=== PATIENT | female | born 1935 | race Caucasian/White ===

== ENCOUNTER → 2016-08-06 | Outpatient (CLI) | payer MEDICARE, BC ==
[~2016-08-06] MED LIST: LOSA50TA PO; MAXZ25 PO; METO25 PO; SIMV20 PO; SYNT112T PO
[2016-08-06 09:37] LABS: AUTOMATED NEUTROPHIL # 4.9 TH/MM3 (1.8-7.7); BASOPHIL # 0.1 TH/MM3 (0-0.2); BASOPHIL % 1.2 % (0.0-2.0); EOSINOPHIL # 0.1 TH/MM3 (0-0.4); EOSINOPHIL % 1.1 % (0.0-4.0); HEMATOCRIT 36.3 % (35.0-46.0); LYMPH % 21.2 % (9.0-44.0); LYMPHOCYTE # 2.1 TH/MM3 (1.0-4.8); MEAN CORPUSCULAR HGB CONC 33.7 % (32.0-36.0); MONO % 25.7 % (0.0-8.0); NEUT % 50.8 % (16.0-70.0); PLATELET COUNT 373 TH/MM3 (150-450); RED BLOOD COUNT 4.08 MIL/MM3 (4.00-5.30); RED CELL DISTRIBUTION WIDTH 15.6 % (11.6-17.2); WHITE BLOOD COUNT 9.7 TH/MM3 (4.0-11.0)
[2016-08-06 09:48] LABS: HEMO FLAGS AUTO DIFF
[2016-08-06 10:04] LABS: ALKALINE PHOSPHATASE 83 U/L (45-117); ALT (GPT) 15 U/L (10-53); ANION GAP 8 MEQ/L (5-15); AST (GOT) 15 U/L (15-37); BLOOD UREA NITROGEN 18 MG/DL (7-18); CHLORIDE 105 MEQ/L (98-107); GLOMERULAR FILTRATION RATE 60 ML/MIN (>89); GLUCOSE,FASTING 103 MG/DL (74-99); HDL CHOLESTEROL 49.6 MG/DL (40.0-60.0); LDL CHOLESTEROL 94 MG/DL (0-99); POTASSIUM 4.4 MEQ/L (3.5-5.1); SODIUM (NA) 142 MEQ/L (136-145); TOTAL BILIRUBIN ADULT 0.4 MG/DL (0.2-1.0)
[2016-08-06 10:36] LABS: SCAN/DIFF AUTO DIFF CONFIRMED
== END ==
LOC: PLAB 07:04
PROVIDERS: ATTEND Family Medicine
DX: R73.01 Impaired fasting glucose (principal); E03.8 Other specified hypothyroidism; E78.2 Mixed hyperlipidemia; I10 Essential (primary) hypertension
CPT/HCPCS: 36415; 80053; 80061; 84443; 85025

== ENCOUNTER → 2016-10-02 | Outpatient (CLI) | payer MEDICARE, BC | LOC: PLAB 10:11 | DX: D33.3 Benign neoplasm of cranial nerves (principal) | CPT/HCPCS: 36415; 82565; 84520 ==

== ENCOUNTER → 2017-01-05 | Outpatient (CLI) | payer MEDICARE, BC | LOC: PLAB 12:06 | PROVIDERS: ATTEND Psychiatry & Neurology Neurology | DX: M31.6 Other giant cell arteritis (principal) | CPT/HCPCS: 36415; 85652; 86140 ==

== ENCOUNTER → 2017-01-14 | Outpatient (CLI) | payer MEDICARE, BC ==
[2017-01-14 16:10] LABS: HEMATOCRIT 35.7 % (35.0-46.0); MEAN CORPUSCULAR HEMOGLOBIN 29.2 PG (27.0-34.0); MEAN CORPUSCULAR HGB CONC 32.9 % (32.0-36.0); PLATELET COUNT 401 TH/MM3 (150-450); RED BLOOD COUNT 4.01 MIL/MM3 (4.00-5.30); RED CELL DISTRIBUTION WIDTH 17.9 % (11.6-17.2); REVIEW FLAG FINAL; WHITE BLOOD COUNT 11.6 TH/MM3 (4.0-11.0)
[2017-01-14 16:11] LABS: BICARBONATE 28.7 MEQ/L (21.0-32.0); POTASSIUM 3.8 MEQ/L (3.5-5.1)
[2017-01-14 16:42] LABS: PROTHROMBIN TIME - PATIENT 10.5 SEC (9.8-11.6)
== END ==
LOC: PLAB 12:39
PROVIDERS: ATTEND Orthopaedic Surgery Sports Medicine
DX: Z01.812 Encounter for preprocedural laboratory examination (principal); Z79.01 Long term (current) use of anticoagulants
CPT/HCPCS: 36415; 80048; 85027; 85610

== ENCOUNTER → 2017-03-15 | Outpatient (CLI) | payer MEDICARE, BC ==
[2017-03-15 09:55] LABS: AUTOMATED NEUTROPHIL # 4.6 TH/MM3 (1.8-7.7); BASOPHIL # 0.1 TH/MM3 (0-0.2); BASOPHIL % 1.6 % (0.0-2.0); EOSINOPHIL # 0.1 TH/MM3 (0-0.4); EOSINOPHIL % 1.3 % (0.0-4.0); HEMATOCRIT 33.2 % (35.0-46.0); LYMPH % 24.3 % (9.0-44.0); LYMPHOCYTE # 2.1 TH/MM3 (1.0-4.8); MEAN CELL VOLUME 88.6 FL (80.0-100.0); MEAN CORPUSCULAR HEMOGLOBIN 30.8 PG (27.0-34.0); MEAN CORPUSCULAR HGB CONC 34.8 % (32.0-36.0); MONO % 19.4 % (0.0-8.0); NEUT % 53.4 % (16.0-70.0); PLATELET COUNT 348 TH/MM3 (150-450); RED BLOOD COUNT 3.74 MIL/MM3 (4.00-5.30); RED CELL DISTRIBUTION WIDTH 17.6 % (11.6-17.2); WHITE BLOOD COUNT 8.7 TH/MM3 (4.0-11.0)
[2017-03-15 09:56] LABS: HEMO FLAGS AUTO DIFF
[2017-03-15 10:00] LABS: ANION GAP 6 MEQ/L (5-15); AST (GOT) 18 U/L (15-37); BICARBONATE 30.5 MEQ/L (21.0-32.0); BLOOD UREA NITROGEN 19 MG/DL (7-18); CHLORIDE 104 MEQ/L (98-107); GLOMERULAR FILTRATION RATE 63 ML/MIN (>89); GLUCOSE,FASTING 106 MG/DL (74-99); POTASSIUM 4.3 MEQ/L (3.5-5.1); SODIUM (NA) 140 MEQ/L (136-145)
[2017-03-15 10:13] LABS: ALKALINE PHOSPHATASE 81 U/L (45-117); ALT (GPT) 17 U/L (10-53); HDL CHOLESTEROL 46.6 MG/DL (40.0-60.0); LDL CHOLESTEROL 99 MG/DL (0-99); TOTAL BILIRUBIN ADULT 0.3 MG/DL (0.2-1.0)
[2017-03-15 11:36] LABS: C. DIFF EPI 027 PRESUMPTIVE NEGATIVE (NEGATIVE)
[2017-03-15 11:44] LABS: OVALOCYTES 1+ (NORMAL)
[2017-03-15 11:45] LABS: SCAN/DIFF AUTO DIFF CONFIRMED
== END ==
LOC: PLAB 06:56
PROVIDERS: ATTEND Family Medicine
DX: E03.8 Other specified hypothyroidism (principal); I10 Essential (primary) hypertension; R73.01 Impaired fasting glucose; E78.2 Mixed hyperlipidemia; Z79.899 Other long term (current) drug therapy
CPT/HCPCS: 36415; 80053; 80061; 84443; 85025; 87493

== ENCOUNTER → 2017-03-17 | Outpatient (CLI) | payer MEDICARE, BC ==
[2017-03-17 16:27] LABS: RHEUMATOID FACTOR TRIGGER LESS THAN 10.0 IU/ML (0.0-14.9)
== END ==
LOC: PLAB 11:21
PROVIDERS: ATTEND Family Medicine
DX: R60.9 Edema, unspecified (principal); R79.82 Elevated C-reactive protein (CRP); R70.0 Elevated erythrocyte sedimentation rate
CPT/HCPCS: 36415; 86038; 86430

== ENCOUNTER 2017-04-22 06:58 | Day surgery (SDC) | payer MEDICARE, BC ==
[~2017-04-22] VITALS: Ht 162.6 cm; Wt 86.4 kg
[2017-04-22 07:27] VITALS: BP 209/86; PULSE 64; RESP 20; TEMP 97.8; O2SAT 99
[2017-04-22] MEDS ORDERED: LIDOCAINE HCL 1% 20 ML VIAL ONE (07:44)
[2017-04-22] MEDS ORDERED: SODIUM CHLOR 0.9% 1000 ML IV SCH (08:00)
[2017-04-22 08:04] LABS: AUTOMATED NEUTROPHIL # 4.1 TH/MM3 (1.8-7.7); BASOPHIL # 0.1 TH/MM3 (0-0.2); BASOPHIL % 1.6 % (0.0-2.0); EOSINOPHIL # 0.1 TH/MM3 (0-0.4); EOSINOPHIL % 0.7 % (0.0-4.0); HEMATOCRIT 36.2 % (35.0-46.0); LYMPH % 23.4 % (9.0-44.0); LYMPHOCYTE # 1.8 TH/MM3 (1.0-4.8); MEAN CELL VOLUME 89.1 FL (80.0-100.0); MEAN CORPUSCULAR HEMOGLOBIN 29.5 PG (27.0-34.0); MEAN CORPUSCULAR HGB CONC 33.1 % (32.0-36.0); MEAN PLATELET VOLUME 10.1 FL (7.0-11.0); MONO % 22.2 % (0.0-8.0); MONOCYTE # 1.7 TH/MM3 (0-0.9); NEUT % 52.1 % (16.0-70.0); PLATELET COUNT 313 TH/MM3 (150-450); RED BLOOD COUNT 4.06 MIL/MM3 (4.00-5.30); RED CELL DISTRIBUTION WIDTH 17.7 % (11.6-17.2); WHITE BLOOD COUNT 7.8 TH/MM3 (4.0-11.0)
[2017-04-22] MEDS ORDERED: MIDAZOLAM HCL 2 MG/2 ML VIAL ONE (08:13)
[2017-04-22 09:01] LABS: BANDS 2 % (0-6); BASOPHILS 3 % (0-2); LYMPHOCYTES 28 % (9-44); MONOCYTES 27 % (0-8); MYELOCYTES 1 % (0-0); NEUTROPHIL # MANUAL DIFF 3.2 TH/MM3 (1.8-7.7); OVALOCYTES 1+ (NORMAL); POLYS (SEG NEUTROPHILS) 38 % (16-70)
[2017-04-22 09:30] VITALS: BP 159/68; PULSE 55; RESP 16; TEMP 98.2; O2SAT 96
[2017-04-22 09:45] VITALS: BP 157/68; PULSE 59; RESP 16; O2SAT 93
[2017-04-22 10:00] VITALS: BP 157/66; PULSE 57; RESP 18; O2SAT 94
[2017-04-22 10:30] VITALS: BP 171/85; PULSE 65; RESP 20; O2SAT 96
[2017-04-22 11:00] VITALS: BP 153/85; PULSE 63; RESP 20; O2SAT 97
--- NOTE | 2017-04-22 11:33 | RADRPT ---
EXAM DATE/TIME: 04/22/2017 08:41 [place] COMPARISON: No previous studies available for comparison. INDICATIONS : Anemia and monocytosis. SEDATION TIME: 15 minutes BIOPSY SITE: Right ilium MEDICATION(S): 1.) 3 mg midazolam (Versed) IV 2.) 150 mcg fentanyl (Sublimaze) IV DEVICE(S): 1.) 11 gauge Bone marrow biopsy needle MEDICAL HISTORY : Gastroesophageal reflux disease. Diverticulosis. Hypertension. Hypothyroidism, acoustic neuroma, uter ine fibroids. SURGICAL HISTORY : Appendectomy. Hysterectomy. Resection of acoustic neuroma. ENCOUNTER: Initial ACUITY: 1 day PAIN SCORE: 0/10 LOCATION: Right pelvis A total of one core specimen(s) were obtained and sent to the laboratory for pathologic evaluation. PROCEDURE: 1. CT guided bone marrow biopsy. Prior to the procedure informed consent was obtained. Any appropriate prior imaging studies were rev iewed. Using automated exposure control and adjustment of the mA and/or kV according to patient size , radiation dose was kept as low as reasonably achievable to obtain optimal diagnostic quality images . DICOM format image data is available electronically for review and comparison. The site was prepped in a sterile fashion. Full sterile technique was used, including cap, mask, sofya rile gloves and gown and a large sterile sheet. Hand hygiene and 2% chlorhexidine and/or betadine/al cohol prep was utilized per protocol for cutaneous antisepsis. The skin and subcutaneous tissues wer e infiltrated with local anesthetic solution. With CT guidance the previously identified target was localized. Biopsy was performed using the presc ribed needle as above. Following biopsy marrow aspiration was performed with repeat puncture. Adequa te hemostasis was obtained with compression at the puncture site. Follow-up CT scan reveals no hemorrhage. Conscious sedation was performed with the prescribed dosages and duration as above in the presence of an independent trained radiology nurse to assist in the monitoring of the patient. EKG and oximetry remained stable throughout the procedure. The patient tolerated the procedure well and there were no complications. The patient was sent to Radiology Outpatient Unit in stable condition. CONCLUSION: 1. Uncomplicated CT guided bone marrow aspirate. 2. Uncomplicated CT guided bone marrow biopsy. Librado Haynes MD on April 22, 2017 at 11:30 Board Certified Radiologist. This report was verified electronically.
== END 2017-04-22 11:30 | disposition home or self-care (01) ==
LOC: HRAD 06:58 → HRIP 07:03 → HRAD 11:30
PROVIDERS: ATTEND Internal Medicine
DX: D64.9 Anemia, unspecified (principal); D72.821 Monocytosis (symptomatic); E03.9 Hypothyroidism, unspecified; I10 Essential (primary) hypertension; K21.9 Gastro-esophageal reflux disease without esophagitis
CPT/HCPCS: 38222; 77012; 85007; 85027; 85097; 88184; 88185; 88237; 88264; 88305; 88311; 88313; 99152; C1830; J2250; J3010; J7030; 38221

== ENCOUNTER → 2017-05-19 | Outpatient (CLI) | payer MEDICARE, BC | LOC: PLAB 13:50 | PROVIDERS: ATTEND Internal Medicine Interventional Cardiology | DX: I25.118 Atherosclerotic heart disease of native coronary artery with other forms of angina pectoris (principal); E78.2 Mixed hyperlipidemia; R06.02 Shortness of breath; I50.9 Heart failure, unspecified | CPT/HCPCS: 36415; 83880 ==

== ENCOUNTER → 2017-05-26 | Outpatient (CLI) | payer MEDICARE, BC ==
--- NOTE | 2017-05-27 09:56 | RSPPFT ---
DATE OF PROCEDURE: 05/26/17 COMMENTS: The forced vital capacity, FEV1, FEV1/FVC ratio and FEF 25-75 are all normal. The total lung capacity and residual volume are normal with a normal RV/TLC. IMPRESSION: This is a normal pulmonary function study. The diffusion capacity, when corrected for volume, is normal.
== END ==
LOC: PHRSP 09:23
PROVIDERS: ATTEND Internal Medicine Interventional Cardiology
DX: R06.02 Shortness of breath (principal)
CPT/HCPCS: 94060; 94726; 94729

== ENCOUNTER → 2017-07-12 | Outpatient (CLI) | payer MEDICARE, BC ==
[2017-07-12 18:46] LABS: AUTOMATED NEUTROPHIL # 4.2 TH/MM3 (1.8-7.7); BASOPHIL # 0.1 TH/MM3 (0-0.2); BASOPHIL % 0.6 % (0.0-2.0); EOSINOPHIL % 0.3 % (0.0-4.0); HEMATOCRIT 30.8 % (35.0-46.0); HEMOGLOBIN 10.8 GM/DL (11.6-15.3); LYMPH % 35.2 % (9.0-44.0); LYMPHOCYTE # 3.4 TH/MM3 (1.0-4.8); MEAN CELL VOLUME 86.1 FL (80.0-100.0); MEAN CORPUSCULAR HEMOGLOBIN 30.1 PG (27.0-34.0); MEAN PLATELET VOLUME 10.6 FL (7.0-11.0); MONO % 20.4 % (0.0-8.0); NEUT % 43.5 % (16.0-70.0); PLATELET COUNT 150 TH/MM3 (150-450); RED BLOOD COUNT 3.58 MIL/MM3 (4.00-5.30); RED CELL DISTRIBUTION WIDTH 17.7 % (11.6-17.2); WHITE BLOOD COUNT 9.7 TH/MM3 (4.0-11.0)
[2017-07-12 19:53] LABS: BANDS 5 % (0-6); BASOPHILS 1 % (0-2); LYMPHOCYTES 37 % (9-44); MONOCYTES 20 % (0-8); NEUTROPHIL # MANUAL DIFF 4.1 TH/MM3 (1.8-7.7); POLYS (SEG NEUTROPHILS) 37 % (16-70)
[2017-07-12 19:54] LABS: OVALOCYTES 1+ (NORMAL)
== END ==
LOC: PLAB 15:53
DX: D47.1 Chronic myeloproliferative disease (principal)
CPT/HCPCS: 36415; 85007; 85027

== ENCOUNTER → 2017-07-22 | Outpatient (CLI) | payer MEDICARE, BC ==
[2017-07-22 10:57] LABS: HEMOGLOBIN 10.2 GM/DL (11.6-15.3); MEAN CELL VOLUME 87.4 FL (80.0-100.0); MEAN CORPUSCULAR HEMOGLOBIN 29.7 PG (27.0-34.0); MEAN PLATELET VOLUME 10.6 FL (7.0-11.0); PLATELET COUNT 81 TH/MM3 (150-450); RED BLOOD COUNT 3.43 MIL/MM3 (4.00-5.30); RED CELL DISTRIBUTION WIDTH 17.8 % (11.6-17.2); RETIC # 73.8 MIL/L (20.0-150.0); RETIC % 2.2 % (0.4-3.0); WHITE BLOOD COUNT 7.7 TH/MM3 (4.0-11.0)
[2017-07-22 11:03] LABS: BICARBONATE 28.3 MEQ/L (21.0-32.0); BLOOD UREA NITROGEN 20 MG/DL (7-18); CALCIUM 8.8 MG/DL (8.5-10.1); CHLORIDE 108 MEQ/L (98-107); GLOMERULAR FILTRATION RATE 81 ML/MIN (>89); GLUCOSE,RANDOM 101 MG/DL (74-106); MAGNESIUM 2.3 MG/DL (1.5-2.5); SODIUM (NA) 143 MEQ/L (136-145)
[2017-07-22 11:08] LABS: ALKALINE PHOSPHATASE 100 U/L (45-117); ALT (GPT) 15 U/L (10-53); AST (GOT) 16 U/L (15-37); DIRECT BILIRUBIN ADULT 0.1 MG/DL (0.0-0.2); PHOSPHORUS 3.5 MG/DL (2.5-4.9); TOTAL BILIRUBIN ADULT 0.4 MG/DL (0.2-1.0); TOTAL PROTEIN 7.9 GM/DL (6.4-8.2)
[2017-07-22 12:08] LABS: BANDS 2 % (0-6); BASOPHILS 2 % (0-2); BLASTS 2 % (0-0); CORRECTED NUCLEATED RBC 2 /100 WBC (0-0); LYMPHOCYTES 24 % (9-44); METAMYELOCYTES 4 % (0-1); MONOCYTES 21 % (0-8); MYELOCYTES 5 % (0-0); NEUTROPHIL # MANUAL DIFF 3.9 TH/MM3 (1.8-7.7); NUCLEATED RED BLOOD CELL 2 (0-0); POLYS (SEG NEUTROPHILS) 40 % (16-70)
[2017-07-22 12:09] LABS: OVALOCYTES 1+ (NORMAL)
[2017-07-22 12:10] LABS: KERATOCYTES OCC (NORMAL); TEARDROP RBCS 1+ (NORMAL)
== END ==
LOC: PLAB 07:49
DX: D47.1 Chronic myeloproliferative disease (principal)
CPT/HCPCS: 36415; 80053; 82248; 83615; 83735; 84100; 84550; 85007; 85027; 85044

== ENCOUNTER → 2017-08-18 | Outpatient (CLI) | payer MEDICARE, BC ==
[2017-08-18 11:17] LABS: HEMATOCRIT 29.8 % (35.0-46.0); MEAN CELL VOLUME 88.3 FL (80.0-100.0); MEAN CORPUSCULAR HEMOGLOBIN 29.7 PG (27.0-34.0); MEAN CORPUSCULAR HGB CONC 33.7 % (32.0-36.0); PLATELET COUNT 160 TH/MM3 (150-450); RED BLOOD COUNT 3.38 MIL/MM3 (4.00-5.30); RED CELL DISTRIBUTION WIDTH 19.4 % (11.6-17.2); WHITE BLOOD COUNT 11.6 TH/MM3 (4.0-11.0)
[2017-08-18 11:29] LABS: % SATURATION IRON PROFILE 21.1 % (20-50); FERRITIN 150 NG/ML (8-252); IRON (FE) 69 MCG/DL (50-170); TOTAL IRON BINDING CAPACITY 328 MCG/DL (250-450)
[2017-08-18 12:46] LABS: BANDS 19 % (0-6); BASOPHILS 1 % (0-2); CORRECTED NUCLEATED RBC 4 /100 WBC (0-0); LYMPHOCYTES 14 % (9-44); METAMYELOCYTES 2 % (0-1); MONOCYTES 26 % (0-8); MYELOCYTES 1 % (0-0); NEUTROPHIL # MANUAL DIFF 6.8 TH/MM3 (1.8-7.7); NUCLEATED RED BLOOD CELL 4 (0-0); POLYS (SEG NEUTROPHILS) 37 % (16-70)
[2017-08-18 12:47] LABS: OVALOCYTES 1+ (NORMAL)
== END ==
LOC: PLAB 06:45
PROVIDERS: ATTEND Internal Medicine Gastroenterology
DX: D50.9 Iron deficiency anemia, unspecified (principal)
CPT/HCPCS: 36415; 82728; 83540; 83550; 85007; 85027

== ENCOUNTER → 2017-08-19 | Outpatient (CLI) | payer MEDICARE, BC ==
[2017-08-19 18:29] LABS: AUTOMATED NEUTROPHIL # 5.7 TH/MM3 (1.8-7.7); BASOPHIL # 0.1 TH/MM3 (0-0.2); BASOPHIL % 1.3 % (0.0-2.0); EOSINOPHIL % 0.3 % (0.0-4.0); HEMATOCRIT 30.2 % (35.0-46.0); HEMOGLOBIN 9.9 GM/DL (11.6-15.3); LYMPH % 20.6 % (9.0-44.0); LYMPHOCYTE # 2.2 TH/MM3 (1.0-4.8); MEAN CELL VOLUME 90.3 FL (80.0-100.0); MEAN CORPUSCULAR HEMOGLOBIN 29.6 PG (27.0-34.0); MEAN CORPUSCULAR HGB CONC 32.8 % (32.0-36.0); MEAN PLATELET VOLUME 10.7 FL (7.0-11.0); MONO % 24.5 % (0.0-8.0); MONOCYTE # 2.6 TH/MM3 (0-0.9); NEUT % 53.3 % (16.0-70.0); PLATELET COUNT 172 TH/MM3 (150-450); RED BLOOD COUNT 3.35 MIL/MM3 (4.00-5.30); RED CELL DISTRIBUTION WIDTH 19.6 % (11.6-17.2); RETIC # 223.2 MIL/L (20.0-150.0); RETIC % 6.7 % (0.4-3.0); WHITE BLOOD COUNT 10.8 TH/MM3 (4.0-11.0)
[2017-08-19 18:49] LABS: AST (GOT) 21 U/L (15-37); BICARBONATE 28.8 MEQ/L (21.0-32.0); BLOOD UREA NITROGEN 16 MG/DL (7-18); CALCIUM 9.2 MG/DL (8.5-10.1); CHLORIDE 103 MEQ/L (98-107); CREATININE 0.81 MG/DL (0.50-1.00); GLOMERULAR FILTRATION RATE 68 ML/MIN (>89); GLUCOSE,FASTING 108 MG/DL (74-99); SODIUM (NA) 140 MEQ/L (136-145)
[2017-08-19 18:50] LABS: ALT (GPT) 18 U/L (10-53)
[2017-08-19 18:52] LABS: ALKALINE PHOSPHATASE 101 U/L (45-117); TOTAL BILIRUBIN ADULT 0.5 MG/DL (0.2-1.0); TOTAL PROTEIN 7.6 GM/DL (6.4-8.2)
[2017-08-19 19:34] LABS: BANDS 5 % (0-6); CORRECTED NUCLEATED RBC 5 /100 WBC (0-0); LYMPHOCYTES 17 % (9-44); MONOCYTES 20 % (0-8); NEUTROPHIL # MANUAL DIFF 6.8 TH/MM3 (1.8-7.7); NUCLEATED RED BLOOD CELL 5 (0-0); OVALOCYTES 1+ (NORMAL); POLYS (SEG NEUTROPHILS) 58 % (16-70); STOMATOCYTES 1+ (NORMAL)
== END ==
LOC: PLAB 14:56
DX: D47.1 Chronic myeloproliferative disease (principal)
CPT/HCPCS: 36415; 80053; 83615; 84550; 85007; 85027; 85044

== ENCOUNTER 2018-02-26 06:58 | Inpatient (IN) ==
--- NOTE | 2018-02-26 07:24 | ED ---
HPI General Chief complaint: Syncope Stated complaint: poss syncope/evac Time Seen by Provider: 02/26/18 07:10 Source: patient Mode of arrival: ambulatory Limitations: no limitations History of Present Illness HPI narrative: 82yo F with PMH of myelofibrosis, hypothyroid, acoustic neuroma s /p resection 2007 (neurosurgeon in [place], now follows with Dr. San ) was brought in by [facility] for evaluation of syncope and fall. Pt was walking at home does not remember what happened and woke up on the floor. Pt complains of pain in her posterior head and sacrum. Also with nausea and vomiting. There is some discomfort on abdominal exam as well. Denies any fever, chest pain, sob , neck pain, focal weakness or numbness. Related Data Home Medications Medication Instructions Recorded Confirmed divalproex 250 mg PO DAILY 10/28/17 02/26/18 isosorbide mononitrate 30 mg PO DAILY 10/28/17 02/26/18 levothyroxine 137 mcg PO DAILY 10/28/17 02/26/18 losartan 50 mg PO DAILY 10/28/17 02/26/18 metoprolol succinate 50 mg PO DAILY 10/28/17 02/26/18 simvastatin 20 mg PO QPM 10/28/17 02/26/18 triamterene-hydrochlorothiazid 1 cap PO DAILY 10/28/17 02/26/18 allopurinol 100 mg PO DAILY 02/26/18 02/26/18 ruxolitinib [Jakafi] 15 mg PO BID 02/26/18 02/26/18 Allergies Allergy/AdvReac Type Severity Reaction Status Date / Time Penicillins Allergy Anaphylaxis Verified 02/26/18 07:36 Sulfa (Sulfonamide AdvReac Nausea Verified 02/26/18 07:36 Antibiotics) Review of Systems ROS: all other systems reviewed are negative [facility] Medical History Medical History Acoustic neuroma (Acute) Myelofibrosis (Acute) Acute torn meniscus of knee (Acute) Carpal tunnel syndrome (Acute) HTN (hypertension) (Acute) High cholesterol (Acute) History of hysterectomy (Acute) Hypothyroid (Acute) Trigger finger (Acute) Surgical History Surgical History History of neck surgery (Acute) Hx of appendectomy (Acute) Social History Social History Substance History: No History of Abuse Second Hand Smoke Exposure: No Smoking Status: Former smoker Tobacco Type: Cigarettes How Often Do You Have a Drink Containing Alcohol: 2 to 3 times a week Recent Travel in [facility] within the Last 8 Weeks: No Exam Narrative Exam Narrative: GENERAL: 82yo F in mild distress. SKIN: Focused skin assessment warm/dry. HEAD: Left temporal deformity from previous surgery. Tender to palpation posterior scalp. No laceration. EYES: Pupils equal and round. No scleral icterus. No injection or drainage. ENT: No nasal bleeding or discharge. Mucous membranes pink and moist. NECK: Trachea midline. No JVD. CARDIOVASCULAR: Regular rate and rhythm. No murmur appreciated. RESPIRATORY: No accessory muscle use. Clear to auscultation. Breath sounds equal bilaterally. GASTROINTESTINAL: Abdomen soft, mild ttp diffusely. Said it hurt when I press but not when I dont. MUSCULOSKELETAL: +TTP sacrum. No obvious deformities. No clubbing. No cyanosis. No edema. NEUROLOGICAL: Awake and alert. No obvious cranial nerve deficits. Motor grossly within normal limits in all extremities. Sensation equal bilaterally. Normal speech. PSYCHIATRIC: Appropriate mood and affect; insight and judgment normal. Course Initial Documented Vital Signs Temperature 97.5 F L 02/26/18 07:32 Pulse Rate 68 02/26/18 07:32 Respiratory Rate 18 02/26/18 07:32 Blood Pressure 186/82 H 02/26/18 07:32 Pulse Oximetry 98 02/26/18 07:32 Last Documented Vital Signs Temperature 97.5 F L 02/26/18 07:32 Pulse Rate 78 02/26/18 12:00 Respiratory Rate 16 02/26/18 12:00 Blood Pressure 155/59 H 02/26/18 11:45 Pulse Oximetry 99 02/26/18 10:15 Critical Care Time Critical Care Time: Yes Total Critical Care Time: 50 Attestation: Aggregate critical care time was 50 minutes. Time to perform other separately billable procedures was not included in the critical care time. My time did not include minutes spent treating any other patients simultaneously or on activities that did not directly contribute to the patient's treatment. The services I provided to this patient were to treat and/or prevent clinically significant deterioration that could result in: cardiovascular collapse or . I provided critical care services requiring my management, as noted below: Chart data review, documentation time, medication orders and management, vital sign assessments/reviewing monitor data, ordering and reviewing lab tests, ordering and interpreting/reviewing x-rays and diagnostic studies, care of the patient and discussion of the patient with the admitting physicians. Medical Decision Making MDM Narrative Medical decision making narrative: 82yo F was brought in by [facility] after episode of syncope and falling onto the floor. Denies any anticoagulation. Pt is vomiting in the ED and given zofran. Labs reviewed, mild leukocytosis at 13, 000. H/H low at 10.9/33.0 but this is her baseline. Troponin negative. BUN mildly elevated at 21. Xray scarum coccyx negative. CT a/p showed no inflammatory changes. CT brain showed left sided subdural hemorrhage. BP is elevated and since pt has ICH, will start on nicardipine drip and give keppra for seizure prophylaxis. Discussed with Dr. Faith from neurosurgery and he recommends admission to [facility], repeat CT scan tomorrow and neurochecks Q2 hr. Discussed with Dr. Rogers and accepted to trauma service. Medical Screen Exam Complete: Yes Emergency Medical Condition: Yes Differential Diagnosis Differential Diagnosis: ICH vs. arrhthymia vs. electrolyte abnormality Lab Data Result diagrams: 02/26/18 07:25 02/26/18 07:25 Lab Results 02/26/18 02/26/18 02/26/18 Range/Units 07:25 07:25 10:45 CBC w Diff Slide review pending WBC 13.0 H (4.0-11.0) th/mm3 RBC 3.49 L (4.00-5.30) mil/mm3 Hgb 10.9 L (11.6-15.3) gm/dL Hct 33.0 L (35.0-46.0) % MCV 94.3 (80.0-100.0) fL MCH 31.1 (27.0-34.0) pg MCHC 32.9 (32.0-36.0) % RDW 16.6 (11.6-17.2) % Plt Count 182 (150-450) th/mm3 MPV 9.3 (7.0-11.0) fL Neut % (Auto) 59.8 (16.0-70.0) % Lymph % (Auto) 21.7 (9.0-44.0) % [place] % (Auto) 15.3 H (0.0-8.0) % Eos % (Auto) 0.3 (0.0-4.0) % Baso % (Auto) 2.9 H (0.0-2.0) % Neut # (Auto) 7.8 H (1.8-7.7) th/mm3 Lymph # (Auto) 2.8 (1.0-4.8) th/mm3 [place] # (Auto) 2.0 H (0.0-0.9) th/mm3 Eos # (Auto) 0.0 (0.0-0.4) th/mm3 Baso # (Auto) 0.4 H (0.0-0.2) th/mm3 WBC Differential . Diff Scan Auto diff confirmed Differential Comment . Platelet Estimate Normal (Normal) Platelet Morphology Normal (Normal) RBC Morphology Normal (Normal) PT (9.8-11.6) sec INR Ratio APTT (23.4-31.7) sec Sodium 140 (136-145) meq/L Potassium 3.7 (3.5-5.1) meq/L Chloride 106 (98-107) meq/L Carbon Dioxide 25.1 (21.0-32.0) meq/L Anion Gap 9 (5-15) meq/L BUN 21 H (7-18) mg/dL Creatinine 0.91 (0.50-1.00) mg/dL Estimated GFR 59 L (>89) mL/min Random Glucose 131 H (74-106) mg/dL Calcium 8.4 L (8.5-10.1) mg/dL Magnesium 2.1 (1.5-2.5) mg/dL Troponin I Less than 0.02 L (0.02-0.05) ng/mL Blood Type O Positive Antibody Screen Negative 02/26/18 Range/Units 10:50 CBC w Diff WBC (4.0-11.0) th/mm3 RBC (4.00-5.30) mil/mm3 Hgb (11.6-15.3) gm/dL Hct (35.0-46.0) % MCV (80.0-100.0) fL MCH (27.0-34.0) pg MCHC (32.0-36.0) % RDW (11.6-17.2) % Plt Count (150-450) th/mm3 MPV (7.0-11.0) fL Neut % (Auto) (16.0-70.0) % Lymph % (Auto) (9.0-44.0) % [place] % (Auto) (0.0-8.0) % Eos % (Auto) (0.0-4.0) % Baso % (Auto) (0.0-2.0) % Neut # (Auto) (1.8-7.7) th/mm3 Lymph # (Auto) (1.0-4.8) th/mm3 [place] # (Auto) (0.0-0.9) th/mm3 Eos # (Auto) (0.0-0.4) th/mm3 Baso # (Auto) (0.0-0.2) th/mm3 WBC Differential Diff Scan Differential Comment Platelet Estimate (Normal) Platelet Morphology (Normal) RBC Morphology (Normal) PT 10.5 (9.8-11.6) sec INR 1.0 Ratio APTT 27.0 (23.4-31.7) sec Sodium (136-145) meq/L Potassium (3.5-5.1) meq/L Chloride (98-107) meq/L Carbon Dioxide (21.0-32.0) meq/L Anion Gap (5-15) meq/L BUN (7-18) mg/dL Creatinine (0.50-1.00) mg/dL Estimated GFR (>89) mL/min Random Glucose (74-106) mg/dL Calcium (8.5-10.1) mg/dL Magnesium (1.5-2.5) mg/dL Troponin I (0.02-0.05) ng/mL Blood Type Antibody Screen Imaging Data Radiologist's impression: Head CT 02/26/18 07:13 CONCLUSION: 1. Left-sided subdural hemorrhage is seen. . Abdomen/Pelvis CT 02/26/18 07:19 CONCLUSION: 1. Atherosclerosis. 2. Hepatic cyst. 3. Diverticulosis. 4. No inflammatory changes are seen. Sacrum and Coccyx X-Ray 02/26/18 07:19 CONCLUSION: No acute findings. ECG Data EKG Prior to Arrival: No Attestation: I personally reviewed and interpreted this ECG as follows: Interpretation: NSR 80bpm. Normal axis. GA interval 144ms. No significant ST elevation or depression. Discharge Plan Discharge Disposition Patient Disposition: 30 Still Patient Discharge Details Diagnosis: Acute subdural hematoma, Syncope Physicians Team ED Provider: Sloane Petersen Primary Care Provider: Dari Herring Attending Provider: Barbara Duque Other Providers: Quang Villagran ; Ethan Henderson ; [employer] ; Jose Kemp ; Cori Ortega ; Kunal Gong ; Janessa Sutton ; Merle Monroy ; Barbara Duque ; Vj Saldana ; Jamel Faith Status ED Status: Left Department Discharge Information Discharge Date/Time: 02/26/18 13:44
[2018-02-26 07:44] LABS: Baso # (Auto) 0.4 th/mm3 (0.0-0.2); Baso % (Auto) 2.9 % (0.0-2.0); Chloride 106 meq/L (98-107); Eos % (Auto) 0.3 % (0.0-4.0); Hemoglobin 10.9 gm/dL (11.6-15.3); Lymph # (Auto) 2.8 th/mm3 (1.0-4.8); Lymph % (Auto) 21.7 % (9.0-44.0); Mean Corpuscular HGB Conc 32.9 % (32.0-36.0); Mean Corpuscular Hemoglobin 31.1 pg (27.0-34.0); Mean Corpuscular Volume 94.3 fL (80.0-100.0); Mean Platelet Volume 9.3 fL (7.0-11.0); Mono % (Auto) 15.3 % (0.0-8.0); Neut # (Auto) 7.8 th/mm3 (1.8-7.7); Neut % (Auto) 59.8 % (16.0-70.0); Platelet Count 182 th/mm3 (150-450); Potassium 3.7 meq/L (3.5-5.1); Red Blood Count 3.49 mil/mm3 (4.00-5.30); Red Cell Distribution Width 16.6 % (11.6-17.2); Sodium 140 meq/L (136-145)
[2018-02-26 07:48] LABS: Calcium 8.4 mg/dL (8.5-10.1)
[2018-02-26 07:49] LABS: Anion Gap 9 meq/L (5-15); Blood Urea Nitrogen 21 mg/dL (7-18); Carbon Dioxide 25.1 meq/L (21.0-32.0); Glucose,Random 131 mg/dL (74-106); Magnesium 2.1 mg/dL (1.5-2.5)
[2018-02-26 07:52] LABS: Glomerular Filtration Rate 59 mL/min (>89)
--- NOTE | 2018-02-26 08:01 | XR ---
EXAM DATE: 02/26/2018 7:52 AM EST AGE/SEX: 82 years / Female INDICATIONS: Fell today, pain coccyx area CLINICAL DATA: This is the patient's initial encounter. Patient reports that signs and symptoms have been present for 1 day and indicates a pain score of 8/10. MEDICAL/SURGICAL HISTORY: . Hypercholesterolemia. Hypertension. Hypothyroidism. . Carpal trisha rufina. Splenomegaly Appendectomy. COMPARISON: No prior exams available for comparison. FINDINGS: Two-view examination of the sacrum and coccyx demonstrates no evidence of fracture or malalignment. The sacral ala and foramina appear symmetric and intact. The coccyx appears unremarkable. The preve rtebral soft tissues are within normal limits. Bone density is diminished. Atherosclerotic calcificat ion of the aorta and iliac vessels. Moderate facet hypertrophic changes of the lower lumbar spine. CONCLUSION: No acute findings. Electronically signed by: Jamel Swenson MD 02/26/2018 7:59 AM EST
[2018-02-26 08:25] LABS: Platelet Estimate Normal (Normal); RBC Morphology Normal (Normal)
[2018-02-26 08:26] LABS: Platelet Morphology Normal (Normal)
--- NOTE | 2018-02-26 08:41 | CT ---
EXAM DATE: 02/26/2018 8:33 AM EST AGE/SEX: 82 years / Female INDICATIONS: Syncope CLINICAL DATA: This is the patient's initial encounter. Patient reports that signs and symptoms have been present for 1 day and indicates a pain score of 7/10. MEDICAL/SURGICAL HISTORY: Hypertension. Hypothyroidism. Appendectomy. Hysterectomy. Acoustic Neur cheryl Left Ear removed, Neck Surgery RADIATION DOSE: 62.94 CTDI (mGy) COMPARISON: POI, MR BRAIN W AND W/O CONTRAST, 10/12/2016. . TECHNIQUE: CT of the head without contrast. Using automated exposure control and adjustment of the mA and/or kV according to patient size, radiation dose was kept as low as reasonably achievable to ob tain optimal diagnostic quality images. DICOM format image data is available electronically for revi ew and comparison. FINDINGS: Examination demonstrates a left frontal subdural hematoma, as well as interhemispheric subdural hemor rhage encounter 1.4 cm in width on axial image 23. There is a small amount of extra-axial hemorrhage also seen along the left temporal region on axial image 14. There is no midline shift. The patient allen s had previous left occipital craniotomy. No fractures are seen. No signs of acute infarction or mass . CONCLUSION: 1. Left-sided subdural hemorrhage is seen. . Electronically signed by: Jamel Swenson MD 02/26/2018 8:39 AM EST
--- NOTE | 2018-02-26 08:43 | CT ---
EXAM DATE: 02/26/2018 8:37 AM EST AGE/SEX: 82 years / Female INDICATIONS: Abdomen pain, Nausea, Vomiting CLINICAL DATA: This is the patient's initial encounter. Patient reports that signs and symptoms have been present for 1 day and indicates a pain score of 7/10. MEDICAL/SURGICAL HISTORY: Hypertension. Hypothyroidism. Appendectomy. Hysterectomy. Acoustic Neuroma Left Ear removed, Neck Surgery ORAL CONTRAST: No oral contrast ingested. RADIATION DOSE: 17.96 CTDI (mGy) COMPARISON: HPO, SACRUM COCCYX MIN 2V, 02/26/2018. . TECHNIQUE: Multiple contiguous axial images were obtained through the abdomen and pelvis following b olus infusion of 93ML ml Omnipaque 350 (iohexol) nonionic water-soluble contrast as a single exam d ose. No oral contrast ingested. Using automated exposure control and adjustment of the mA and/or kV according to patient size, radiation dose was kept as low as reasonably achievable to obtain optimal diagnostic quality images. DICOM format image data is available electronically for review and compar cary. FINDINGS: Coronary artery calcification. No pleural or pericardial effusions. There is a cyst present in the ri ght lobe of the liver measuring 3.4 cm. Gallbladder, kidneys, adrenals, spleen, pancreas unremarkable . No evidence of bowel obstruction. Urinary bladder is unremarkable. The patient is status post hyste rectomy. There is diverticulosis of the sigmoid colon, without evidence of diverticulitis. No adenopa thy or aneurysm. Atherosclerotic calcifications of the aorta and iliac vessels are noted. The osseous structures are intact with degenerative changes of the lower lumbar spine. Review of lung windows de monstrate subpleural interstitial lung disease. CONCLUSION: 1. Atherosclerosis. 2. Hepatic cyst. 3. Diverticulosis. 4. No inflammatory changes are seen. Electronically signed by: Jamel Swenson MD 02/26/2018 8:41 AM EST
[2018-02-26] MEDS ORDERED: levETIRAcetam 1000mg/100mL Inj 100 ML IV.SIG ONE (09:13)
[2018-02-26] MEDS ORDERED: Morphine Sulfate Inj 2 MG/ML Vial IV.PUSH ONE (09:32)
[2018-02-26] MEDS: niCARdipine Inj 25 MG in Sodium Chlor 0.9% Inj 240 ML IV.CONT PRN ×4 (09:34→22:04)
--- NOTE | 2018-02-26 09:56 | ECG ---
Date Performed: 02/26/2018 Time Performed: 07:23:00 PTAGE: 82 years EKG: Sinus rhythm NORMAL ECG No significant change from prior electrocardiogram. PREVIOUS TRACING : 11/09/2011 18.04 DOCTOR: Tejas Hernandez Interpretating Date/Time 02/26/2018 09:55:44
[2018-02-26 11:08] LABS: Prothrombin Time 10.5 sec (9.8-11.6)
[2018-02-26] MEDS ORDERED: Acetaminophen 325 MG Tablet PO PRN (13:20)
[2018-02-26] MEDS ORDERED: Dextrose 50% in Water 50 ML Vial IV.PUSH PRN (13:34)
--- NOTE | 2018-02-26 15:11 | P.PNCC ---
Subjective Brief History: 82yo F with PMH of myelofibrosis, hypothyroid, acoustic neuroma s/p resection 2007 (neurosurgeon in [place]), was brought in by [facility] for evaluation of syncope and fall. Pt was walking at home does not remember what happened and woke up on the floor. Pt complains of pain in her posterior head and sacrum. Also with nausea and vomiting. There is some discomfort on abdominal exam as well. Denies any fever, chest pain, sob, neck pain, focal weakness or numbness. Patient was initially seen and [place] emergency room and transferred to our institution after full workup was completed CT scan of the brain reveals left temporal parietal subdural hematoma measuring about 1.4 cm not causing any compression and no mass-effect and some bleeding over the vertex of the brain in the area of sagittal sinus. On arrival patient is awake alert and oriented complaining about headache Patient states that she fell many times before and this is been a general problem because of the balance disturbance since the acoustic neuroma resection 10 years ago I am still not sure if there may be some underlying issues the patient will undergo carotid ultrasound and cardiac echo just to make sure Neurosurgery consult obtained Repeat CT scan and 24-48 hours and after that patient can transfer to floor Objective Vital Signs / I&O: Vital Signs 02/26/18 07:32 02/26/18 07:41 02/26/18 07:46 Temperature 97.5 F L Pulse Rate 68 68 Respiratory Rate 18 Blood Pressure 186/82 H Pulse Oximetry 98 98 02/26/18 08:54 02/26/18 09:45 02/26/18 10:00 Temperature Pulse Rate 69 70 78 Respiratory Rate 16 16 16 Blood Pressure 183/78 H 192/82 H 185/84 H Pulse Oximetry 99 99 98 02/26/18 10:15 02/26/18 10:30 02/26/18 10:45 Temperature Pulse Rate 80 Respiratory Rate 16 16 16 Blood Pressure 172/65 H 158/60 H 166/77 H Pulse Oximetry 99 02/26/18 11:00 02/26/18 11:15 02/26/18 11:30 Temperature Pulse Rate 78 76 78 Respiratory Rate 16 16 16 Blood Pressure 157/73 H 161/70 H 156/71 H Pulse Oximetry 02/26/18 11:45 02/26/18 12:00 02/26/18 13:09 Temperature Pulse Rate 76 78 Respiratory Rate 16 16 Blood Pressure 155/59 H 144/64 H Pulse Oximetry 02/26/18 13:11 02/26/18 14:00 02/26/18 15:00 Temperature 98.4 F Pulse Rate 88 84 Respiratory Rate 23 16 Blood Pressure Pulse Oximetry 96 98 97 Intake & Output 02/25/18 02/26/18 02/26/18 18:59 06:59 18:59 Intake Total 350 / 350 Balance 350 / 350 Weight 87 kg Intake: IV 350 / 350 Cardene Inj 25 MG In NS Inj 240 250 / 250 ML @ 5 MG/HR 50 mls/hr IV.CONT TITRATE PRN Rx#:[id number] Keppra 1000 mg/100 mL Premix 100 / 100 100 ML @ 400 mls/hr IV.SIG ONCE ONE Rx#:[id number] Other: Weight On Admission 87 kg Result Diagrams: 02/26/18 07:25 02/26/18 07:25 Imaging: Impressions Head CT 02/26/18 07:13 CONCLUSION: 1. Left-sided subdural hemorrhage is seen. . Abdomen/Pelvis CT 02/26/18 07:19 CONCLUSION: 1. Atherosclerosis. 2. Hepatic cyst. 3. Diverticulosis. 4. No inflammatory changes are seen. Sacrum and Coccyx X-Ray 02/26/18 07:19 CONCLUSION: No acute findings. Assessment and Plan Attestation: Critical care time 34 minutes
[2018-02-26] MEDS ORDERED: Influenza (Quadrivalent) Vaccine 0.5 ML Syringe IM ONE (16:00)
[2018-02-26] MEDS: Morphine Sulfate Inj 2 MG/ML Vial IV.PUSH PRN (16:48)
--- NOTE | 2018-02-26 16:48 | US ---
EXAM DATE: 02/26/2018 4:29 PM EST AGE/SEX: 82 years / Female INDICATIONS: Syncope. CLINICAL DATA: This is the patient's initial encounter. Patient reports that signs and symptoms have been present for 1 day and indicates a pain score of 0/10. MEDICAL/SURGICAL HISTORY: Hypercholesterolemia. Hypertension. Hypothyroidism. Acoustic neuro ma. Myelofibrosis. Hysterectomy. Appendectomy. Neck surgery. COMPARISON: No prior exams available for comparison. VELOCITY PARAMETERS: ICA/CCA Ratio: Right 1.0 , Left 1.3 ICA: Right 124 cm/sec, Left 196 cm/sec CCA: Right 129 cm/sec, Left 146 cm/sec ECA: Right 131 cm/sec, Left 137 cm/sec Vertebral: Right 102 cm/sec antegrade, Left 69 cm/sec antegrade FINDINGS: Right Carotid: Mild arteriosclerotic plaque is visualized of the bulb and proximal internal carotid artery.The waveforms are within normal limits. Left Carotid: Mild to moderate arteriosclerotic plaque is visualized of the bulb and proximal [employer] al carotid artery. The waveforms are within normal limits. Other: None. CONCLUSION: 1. Right Internal Carotid Artery: Mild bifurcation atherosclerosis without hemodynamically significa nt narrowing. 2. Left Internal Carotid Artery: Mild to moderate bifurcation atherosclerosis without hemodynamicall y significant narrowing. Electronically signed by: Austin Man MD 02/26/2018 4:46 PM EST
[2018-02-26] MEDS: Insulin NovoLOG Aspart Correctional Sugar Inj SQ SCH ×2 (17:26→21:28)
[2018-02-26] MEDS: levETIRAcetam 500 MG Tablet PO SCH (21:11)
[2018-02-26] MEDS: Famotidine 20 MG Tablet PO SCH (21:11)
[2018-02-26] MEDS: Docusate Sodium 100 MG Capsule PO SCH (21:12)
[2018-02-27] MEDS: Insulin NovoLOG Aspart Correctional Sugar Inj SQ SCH (02:49)
[2018-02-27] MEDS ORDERED: Chlorhexidine Gluconate 2% 1 Pack (2 Cloths) TOPICAL SCH (04:00)
[2018-02-27] MEDS ORDERED: Chlorhexidine Gluconate 2% 1 Pack (2 Cloths) TOPICAL PRN (04:00)
[2018-02-27 05:28] LABS: Bilirubin,Urine Negative (Negative); Clarity,Urine Hazy (Clear); Color,Urine Yellow (Yellw/Straw); Glucose,Urine (UA) Negative (Negative); Leukocyte Esterase,Urine Moderate (Negative); Mucus,Urine Few /lpf (Occasional); Nitrite,Urine Negative (Negative); Renal Epithelial Cells,Urine <1 /hpf; Specific Gravity,Urine 1.025 (1.002-1.035); Squamous Epithelial Cell,Urine 1 /hpf (0-5); Transitional Epi Cells,Urine <1 /hpf
[2018-02-27 05:32] LABS: Baso # (Auto) 0.1 th/mm3 (0.0-0.2); Baso % (Auto) 0.8 % (0.0-2.0); Eos % (Auto) 0.2 % (0.0-4.0); Hematocrit 30.5 % (35.0-46.0); Hemoglobin 10.3 gm/dL (11.6-15.3); Lymph # (Auto) 1.3 th/mm3 (1.0-4.8); Lymph % (Auto) 10.8 % (9.0-44.0); Mean Corpuscular HGB Conc 33.8 % (32.0-36.0); Mean Corpuscular Hemoglobin 32.3 pg (27.0-34.0); Mean Corpuscular Volume 95.6 fL (80.0-100.0); Mean Platelet Volume 10.7 fL (7.0-11.0); Mono # (Auto) 2.6 th/mm3 (0.0-0.9); Mono % (Auto) 21.6 % (0.0-8.0); Neut # (Auto) 8.1 th/mm3 (1.8-7.7); Neut % (Auto) 66.6 % (16.0-70.0); Platelet Count 185 th/mm3 (150-450); Red Blood Count 3.19 mil/mm3 (4.00-5.30); Red Cell Distribution Width 17.4 % (11.6-17.2); White Blood Count 12.2 th/mm3 (4.0-11.0)
--- NOTE | 2018-02-27 05:37 | P.PNCC ---
Subjective Brief History: 82yo F with PMH of myelofibrosis, hypothyroid, acoustic neuroma s/p resection 2007 (neurosurgeon in [place]), was brought in by [facility] for evaluation of syncope and fall. Pt was walking at home does not remember what happened and woke up on the floor. Pt complains of pain in her posterior head and sacrum. Also with nausea and vomiting. There is some discomfort on abdominal exam as well. Denies any fever, chest pain, sob, neck pain, focal weakness or numbness. Patient was initially seen and [facility] emergency room and transferred to our institution after full workup was completed CT scan of the brain reveals left temporal parietal subdural hematoma measuring about 1.4 cm not causing any compression and no mass-effect and some bleeding over the vertex of the brain in the area of sagittal sinus. On arrival patient is awake alert and oriented complaining about headache Patient states that she fell many times before and this is been a general problem because of the balance disturbance since the acoustic neuroma resection 10 years ago I am still not sure if there may be some underlying issues the patient will undergo carotid ultrasound and cardiac echo just to make sure Neurosurgery consult obtained Repeat CT scan and 24-48 hours and after that patient can transfer to floor 24 Hour Review/Hospital Course: 02/27/2018 Patient is awake alert and oriented Still has some headache Neurologically she is fully intact CN II to XII are intact Motorically no lateralization no drift Sensory fully preserved Hemodynamically patient remained stable Bilateral good breath sounds and good pulmonary function with normal oxygenation and ventilation parameters Abdomen soft active bowel sounds Patient for repeat CT scan of the head today and if okay patient will be transferred to the floor Carotid ultrasound does not reveal hemodynamically significant degree of stenosis with mild irregularity only and cardiac echo pending as part of the syncopal workup although most likely patient's problem is general poor balance post acoustic neuroma surgery several years ago Objective Vital Signs / I&O: Vital Signs 02/26/18 07:32 02/26/18 07:41 02/26/18 07:46 Temperature 97.5 F L Pulse Rate 68 68 Respiratory Rate 18 Blood Pressure 186/82 H Pulse Oximetry 98 98 02/26/18 08:54 02/26/18 09:45 02/26/18 10:00 Temperature Pulse Rate 69 70 78 Respiratory Rate 16 16 16 Blood Pressure 183/78 H 192/82 H 185/84 H Pulse Oximetry 99 99 98 02/26/18 10:15 02/26/18 10:30 02/26/18 10:45 Temperature Pulse Rate 80 Respiratory Rate 16 16 16 Blood Pressure 172/65 H 158/60 H 166/77 H Pulse Oximetry 99 02/26/18 11:00 02/26/18 11:15 02/26/18 11:30 Temperature Pulse Rate 78 76 78 Respiratory Rate 16 16 16 Blood Pressure 157/73 H 161/70 H 156/71 H Pulse Oximetry 02/26/18 11:45 02/26/18 12:00 02/26/18 13:09 Temperature Pulse Rate 76 78 Respiratory Rate 16 16 Blood Pressure 155/59 H 144/64 H Pulse Oximetry 02/26/18 13:11 02/26/18 14:00 02/26/18 15:00 Temperature 98.4 F Pulse Rate 88 84 Respiratory Rate 23 16 Blood Pressure Pulse Oximetry 96 98 97 02/26/18 15:15 02/26/18 15:16 02/26/18 15:30 Temperature Pulse Rate 79 77 76 Respiratory Rate 14 13 13 Blood Pressure 134/62 135/63 Pulse Oximetry 98 98 99 02/26/18 15:45 02/26/18 16:00 02/26/18 16:15 Temperature Pulse Rate 74 77 78 Respiratory Rate 14 14 16 Blood Pressure 134/59 L 128/58 L 130/60 Pulse Oximetry 99 95 95 02/26/18 16:30 02/26/18 16:45 02/26/18 17:00 Temperature 98.0 F Pulse Rate 78 81 84 Respiratory Rate 18 22 16 Blood Pressure 132/60 134/61 145/67 H Pulse Oximetry 95 96 95 02/26/18 17:15 02/26/18 17:30 02/26/18 17:45 Temperature Pulse Rate 81 77 75 Respiratory Rate 15 15 13 Blood Pressure 142/65 H 132/59 L 136/63 Pulse Oximetry 95 96 96 02/26/18 18:00 02/26/18 18:15 02/26/18 18:30 Temperature Pulse Rate 73 74 80 Respiratory Rate 13 13 19 Blood Pressure 133/63 139/66 149/67 H Pulse Oximetry 96 96 97 02/26/18 18:45 02/26/18 19:00 02/26/18 19:15 Temperature Pulse Rate 78 78 75 Respiratory Rate 24 40 H 18 Blood Pressure 145/71 H 156/70 H 140/57 L Pulse Oximetry 99 96 92 L 02/26/18 19:30 02/26/18 19:45 02/26/18 20:00 Temperature 98.2 F Pulse Rate 68 66 67 Respiratory Rate 13 13 13 Blood Pressure 132/59 L 133/60 135/63 Pulse Oximetry 93 L 93 L 96 02/26/18 20:15 02/26/18 20:30 02/26/18 20:45 Temperature Pulse Rate 63 77 69 Respiratory Rate 14 35 H 15 Blood Pressure 115/58 L 150/69 H 139/65 Pulse Oximetry 92 L 92 L 96 02/26/18 21:00 02/26/18 21:15 02/26/18 21:30 Temperature Pulse Rate 67 66 69 Respiratory Rate 18 14 21 Blood Pressure 140/65 133/62 134/63 Pulse Oximetry 97 96 97 02/26/18 21:45 02/26/18 22:00 02/26/18 22:15 Temperature Pulse Rate 66 63 61 Respiratory Rate 16 13 14 Blood Pressure 129/59 L 131/60 130/60 Pulse Oximetry 96 97 98 02/26/18 22:30 02/26/18 22:45 02/26/18 23:00 Temperature Pulse Rate 64 60 60 Respiratory Rate 13 22 19 Blood Pressure 126/60 104/44 L 103/52 L Pulse Oximetry 98 95 96 02/26/18 23:15 02/26/18 23:30 02/26/18 23:45 Temperature Pulse Rate 60 60 60 Respiratory Rate 27 H 20 20 Blood Pressure 110/55 L 110/56 L 114/56 L Pulse Oximetry 95 95 96 02/27/18 00:00 02/27/18 00:15 02/27/18 00:30 Temperature 98.3 F Pulse Rate 62 62 62 Respiratory Rate 18 19 14 Blood Pressure 118/56 L 116/56 L 121/56 L Pulse Oximetry 96 97 96 02/27/18 00:45 02/27/18 01:00 02/27/18 01:15 Temperature Pulse Rate 63 61 62 Respiratory Rate 15 30 H 17 Blood Pressure 115/56 L 114/56 L 114/57 L Pulse Oximetry 100 99 98 02/27/18 01:30 02/27/18 01:45 02/27/18 02:00 Temperature Pulse Rate 64 62 62 Respiratory Rate 17 13 13 Blood Pressure 132/60 136/63 137/63 Pulse Oximetry 97 96 98 02/27/18 02:15 02/27/18 02:30 Temperature Pulse Rate 62 70 Respiratory Rate 14 18 Blood Pressure 128/55 L 154/67 H Pulse Oximetry 98 97 Intake & Output 02/26/18 02/26/18 02/27/18 06:59 18:59 06:59 Intake Total 600 / 600 250 / 250 Balance 600 / 600 250 / 250 Weight 87 kg Intake: IV 600 / 600 250 / 250 Cardene Inj 25 MG In NS Inj 240 500 / 500 250 / 250 ML @ 5 MG/HR 50 mls/hr IV.CONT TITRATE PRN Rx#:[id number] Keppra 1000 mg/100 mL Premix 100 / 100 100 ML @ 400 mls/hr IV.SIG ONCE ONE Rx#:[id number] Other: Weight On Admission 87 kg Result Diagrams: 02/26/18 07:25 02/26/18 07:25 Imaging: Impressions Head CT 02/26/18 07:13 CONCLUSION: 1. Left-sided subdural hemorrhage is seen. . Abdomen/Pelvis CT 02/26/18 07:19 CONCLUSION: 1. Atherosclerosis. 2. Hepatic cyst. 3. Diverticulosis. 4. No inflammatory changes are seen. Sacrum and Coccyx X-Ray 02/26/18 07:19 CONCLUSION: No acute findings. Carotid Doppler Study 02/26/18 15:32 CONCLUSION: 1. Right Internal Carotid Artery: Mild bifurcation atherosclerosis without hemodynamically significant narrowing. 2. Left Internal Carotid Artery: Mild to moderate bifurcation atherosclerosis without hemodynamically significant narrowing. Assessment and Plan Attestation: Critical care time 32 minutes
[2018-02-27 05:47] LABS: Albumin 3.4 g/dL (3.4-5.0); Anion Gap 7 meq/L (5-15); Aspartate Aminotransferase 19 U/L (15-37); Blood Urea Nitrogen 12 mg/dL (7-18); Carbon Dioxide 28.3 meq/L (21.0-32.0); Chloride 109 meq/L (98-107); Glomerular Filtration Rate 81 mL/min (>89); Glucose,Random 108 mg/dL (74-106); Sodium 144 meq/L (136-145)
[2018-02-27 05:48] LABS: Alanine Aminotransferase 19 U/L (10-53)
[2018-02-27 05:50] LABS: Alkaline Phosphatase 67 U/L (45-117); Total Protein 6.9 g/dL (6.4-8.2)
[2018-02-27] MEDS: Levothyroxine 112 MCG Tablet PO SCH (06:19)
[2018-02-27] MEDS: niCARdipine Inj 25 MG in Sodium Chlor 0.9% Inj 240 ML IV.CONT PRN (06:20)
[2018-02-27 07:20] LABS: Lymphocytes 12 % (9-44); Monocytes 23 % (0-8); Tallied Nucleated RBC 2 (0-0)
[2018-02-27 07:21] LABS: Platelet Estimate Normal (Normal)
[2018-02-27 07:22] LABS: Ovalocytes 1+
--- NOTE | 2018-02-27 07:57 | P.CONNS ---
History of Present Illness Primary Care Provider: Dari Herring MD Chief Complaint: fall, SDH History of Present Illness: 82yoF who fell, +LOC. Has history of dizziness since acoustic neuroma resection 10 years ago in [facility] (Roman Blanchard, 10 hour surgery, good resection, no residual on 5 year follow-up). Called her friend who brought her to the hospital. head CT showing parafalcine SDH 14mm thick, no mass effect or midline shift. Neuro intact, transferred from [place] ED for neurologic monitoring. [facility] - History History Provided By: Patient - Medical History Medical History: Medical History (Last Updated 02/26/18 @ 07:53 by Chino Cormier RN) Acoustic neuroma Myelofibrosis Acute torn meniscus of knee Carpal tunnel syndrome HTN (hypertension) High cholesterol History of hysterectomy Hypothyroid Trigger finger - Surgical History Surgical History: Surgical History (Last Updated 02/26/18 @ 07:45 by Chino Cormier RN) History of neck surgery Hx of appendectomy - Tobacco History Second Hand Smoke Exposure: No Tobacco Use In Past 30 Days: No Smoking Status: Never smoker Tobacco Type: Cigarettes - Alcohol History How Often Do You Have a Drink Containing Alcohol: 2 to 4 times a month - Substance Use History Substance History: No History of Abuse - Travel History Recent Travel in the [facility] Within the Last 8 Weeks: No - Immunization History Tetanus Immunization: <5 Years Hx Influenza Vaccine This Season: No Medications and Allergies Active Medications: Active Medications Acetaminophen (Tylenol) 650 mg PO Q6H PRN PRN Reason: PAIN 1-10 AND/OR FEVER >101F Hydrocodone Bitart/Acetaminophen (Thorpe 5/325) 1 tab PO Q4H PRN PRN Reason: PAIN 1-5 Hydrocodone Bitart/Acetaminophen (Thorpe 7.5/325) 1 tab PO Q4H PRN PRN Reason: PAIN 6-10 Al Hydroxide/Mg Hydroxide (Milk Of Magnesia Liq) 30 ml PO BID [facility] Last Admin: 02/26/18 21:11 Dose: Not Given Allopurinol (Zyloprim) 100 mg PO DAILY [facility] Bacitracin (Baciguent Oint) 1 applicatio TOPICAL BID [facility] Last Admin: 02/26/18 21:11 Dose: 1 applicatio Chlorhexidine Gluconate (Chlorhexidine 2% Cloth) 3 pack TOPICAL DAILY@0400 [facility] Stop: 03/04/18 03:59 Last Admin: 02/27/18 04:54 Dose: 3 pack Chlorhexidine Gluconate (Chlorhexidine 2% Cloth) 3 pack TOPICAL DAILY@0400 PRN PRN Reason: Extra cloth needed Stop: 03/04/18 03:59 Divalproex Sodium (Depakote Er) 250 mg PO DAILY [facility] Docusate Sodium (Colace) 100 mg PO BID [facility] Last Admin: 02/26/18 21:12 Dose: Not Given Famotidine (Pepcid) 20 mg PO BID [facility] Last Admin: 02/26/18 21:11 Dose: 20 mg Levetiracetam (Keppra) 500 mg PO BID [facility] Last Admin: 02/26/18 21:11 Dose: 500 mg Levothyroxine Sodium (Synthroid) 112 mcg PO DAILY@0600 [facility] Last Admin: 02/27/18 06:19 Dose: 112 mcg Levothyroxine Sodium (Synthroid) 25 mcg PO DAILY@0600 [facility] Last Admin: 02/27/18 06:19 Dose: 25 mcg Losartan Potassium (Cozaar) 50 mg PO DAILY [facility] Metoprolol Succinate (Toprol Xl) 50 mg PO DAILY [facility] Morphine Sulfate (Morphine Inj) 2 mg IV.PUSH Q4H PRN PRN Reason: BREAKTHROUGH PAIN Last Admin: 02/26/18 16:48 Dose: 2 mg Ondansetron HCl (Zofran Inj) 4 mg IV.PUSH Q8H PRN PRN Reason: NAUSEA OR VOMITING Last Admin: 02/26/18 14:21 Dose: 4 mg Pt Own Med ([Jakafi] (Ruxoltinib 15 Mg )) 0 each PO BID [facility] Pravastatin Sodium (Pravachol) 40 mg PO QPM [facility] Last Admin: 02/26/18 17:58 Dose: Not Given Sodium Chloride (Ns Flush) 2 ml IV.FLUSH UNSCH PRN PRN Reason: FLUSH AFTER USING IV ACCESS Triamterene/HCTZ (Dyazide 37.5/25 Mg) 1 cap PO DAILY [facility] Allergies Allergy/AdvReac Type Severity Reaction Status Date / Time Penicillins Allergy Anaphylaxis Verified 02/26/18 07:36 Sulfa (Sulfonamide AdvReac Nausea Verified 02/26/18 07:36 Antibiotics) Home Medications Medication Instructions Recorded Confirmed Type divalproex 250 mg PO DAILY 10/28/17 02/26/18 History isosorbide mononitrate 30 mg PO DAILY 10/28/17 02/26/18 History levothyroxine 137 mcg PO DAILY 10/28/17 02/26/18 History losartan 50 mg PO DAILY 10/28/17 02/26/18 History metoprolol succinate 50 mg PO DAILY 10/28/17 02/26/18 History simvastatin 20 mg PO QPM 10/28/17 02/26/18 History triamterene-hydrochlorothiazid 1 cap PO DAILY 10/28/17 02/26/18 History allopurinol 100 mg PO DAILY 02/26/18 02/26/18 History ruxolitinib [Jakafi] 15 mg PO BID 02/26/18 02/26/18 History Exam Vital signs: Vital Signs 02/26/18 08:54 02/26/18 09:45 02/26/18 10:00 Temperature Pulse Rate 69 70 78 Respiratory Rate 16 16 16 Blood Pressure 183/78 H 192/82 H 185/84 H Pulse Oximetry 99 99 98 02/26/18 10:15 02/26/18 10:30 02/26/18 10:45 Temperature Pulse Rate 80 Respiratory Rate 16 16 16 Blood Pressure 172/65 H 158/60 H 166/77 H Pulse Oximetry 99 02/26/18 11:00 02/26/18 11:15 02/26/18 11:30 Temperature Pulse Rate 78 76 78 Respiratory Rate 16 16 16 Blood Pressure 157/73 H 161/70 H 156/71 H Pulse Oximetry 02/26/18 11:45 02/26/18 12:00 02/26/18 13:09 Temperature Pulse Rate 76 78 Respiratory Rate 16 16 Blood Pressure 155/59 H 144/64 H Pulse Oximetry 02/26/18 13:11 02/26/18 14:00 02/26/18 15:00 Temperature 98.4 F Pulse Rate 88 84 Respiratory Rate 23 16 Blood Pressure Pulse Oximetry 96 98 97 02/26/18 15:15 02/26/18 15:16 02/26/18 15:30 Temperature Pulse Rate 79 77 76 Respiratory Rate 14 13 13 Blood Pressure 134/62 135/63 Pulse Oximetry 98 98 99 02/26/18 15:45 02/26/18 16:00 02/26/18 16:15 Temperature Pulse Rate 74 77 78 Respiratory Rate 14 14 16 Blood Pressure 134/59 L 128/58 L 130/60 Pulse Oximetry 99 95 95 02/26/18 16:30 02/26/18 16:45 02/26/18 17:00 Temperature 98.0 F Pulse Rate 78 81 84 Respiratory Rate 18 22 16 Blood Pressure 132/60 134/61 145/67 H Pulse Oximetry 95 96 95 02/26/18 17:15 02/26/18 17:30 02/26/18 17:45 Temperature Pulse Rate 81 77 75 Respiratory Rate 15 15 13 Blood Pressure 142/65 H 132/59 L 136/63 Pulse Oximetry 95 96 96 02/26/18 18:00 02/26/18 18:15 02/26/18 18:30 Temperature Pulse Rate 73 74 80 Respiratory Rate 13 13 19 Blood Pressure 133/63 139/66 149/67 H Pulse Oximetry 96 96 97 02/26/18 18:45 02/26/18 19:00 02/26/18 19:15 Temperature Pulse Rate 78 78 75 Respiratory Rate 24 40 H 18 Blood Pressure 145/71 H 156/70 H 140/57 L Pulse Oximetry 99 96 92 L 02/26/18 19:30 02/26/18 19:45 02/26/18 20:00 Temperature 98.2 F Pulse Rate 68 66 67 Respiratory Rate 13 13 13 Blood Pressure 132/59 L 133/60 135/63 Pulse Oximetry 93 L 93 L 96 02/26/18 20:15 02/26/18 20:30 02/26/18 20:45 Temperature Pulse Rate 63 77 69 Respiratory Rate 14 35 H 15 Blood Pressure 115/58 L 150/69 H 139/65 Pulse Oximetry 92 L 92 L 96 02/26/18 21:00 02/26/18 21:15 02/26/18 21:30 Temperature Pulse Rate 67 66 69 Respiratory Rate 18 14 21 Blood Pressure 140/65 133/62 134/63 Pulse Oximetry 97 96 97 02/26/18 21:45 02/26/18 22:00 02/26/18 22:15 Temperature Pulse Rate 66 63 61 Respiratory Rate 16 13 14 Blood Pressure 129/59 L 131/60 130/60 Pulse Oximetry 96 97 98 02/26/18 22:30 02/26/18 22:45 02/26/18 23:00 Temperature Pulse Rate 64 60 60 Respiratory Rate 13 22 19 Blood Pressure 126/60 104/44 L 103/52 L Pulse Oximetry 98 95 96 02/26/18 23:15 02/26/18 23:30 02/26/18 23:45 Temperature Pulse Rate 60 60 60 Respiratory Rate 27 H 20 20 Blood Pressure 110/55 L 110/56 L 114/56 L Pulse Oximetry 95 95 96 02/27/18 00:00 02/27/18 00:15 02/27/18 00:30 Temperature 98.3 F Pulse Rate 62 62 62 Respiratory Rate 18 19 14 Blood Pressure 118/56 L 116/56 L 121/56 L Pulse Oximetry 96 97 96 02/27/18 00:45 02/27/18 01:00 02/27/18 01:15 Temperature Pulse Rate 63 61 62 Respiratory Rate 15 30 H 17 Blood Pressure 115/56 L 114/56 L 114/57 L Pulse Oximetry 100 99 98 02/27/18 01:30 02/27/18 01:45 02/27/18 02:00 Temperature Pulse Rate 64 62 62 Respiratory Rate 17 13 13 Blood Pressure 132/60 136/63 137/63 Pulse Oximetry 97 96 98 02/27/18 02:15 02/27/18 02:30 02/27/18 02:45 Temperature Pulse Rate 62 70 59 L Respiratory Rate 14 18 13 Blood Pressure 128/55 L 154/67 H 151/57 H Pulse Oximetry 98 97 99 02/27/18 03:00 02/27/18 03:15 02/27/18 03:30 Temperature Pulse Rate 61 61 62 Respiratory Rate 14 14 14 Blood Pressure 133/61 130/60 131/63 Pulse Oximetry 99 99 99 02/27/18 03:45 02/27/18 04:00 02/27/18 04:15 Temperature 98.4 F Pulse Rate 62 68 Respiratory Rate 13 14 Blood Pressure 128/59 L 140/68 150/64 H Pulse Oximetry 98 100 02/27/18 04:30 02/27/18 04:45 02/27/18 05:00 Temperature Pulse Rate 70 80 63 Respiratory Rate 17 22 19 Blood Pressure 143/67 H 157/68 H 145/67 H Pulse Oximetry 97 97 96 02/27/18 05:15 02/27/18 05:30 02/27/18 05:45 Temperature Pulse Rate 58 L 64 67 Respiratory Rate 17 19 15 Blood Pressure 143/63 H 154/68 H 145/58 H Pulse Oximetry 98 99 97 02/27/18 06:00 02/27/18 06:15 02/27/18 06:30 Temperature Pulse Rate 62 63 68 Respiratory Rate 15 13 19 Blood Pressure 147/66 H 148/66 H 146/63 H Pulse Oximetry 97 99 98 Intake & Output 02/26/18 02/27/18 02/27/18 18:59 06:59 18:59 Intake Total 600 / 600 250 / 250 Output Total 500 / 500 Balance 600 / 600 -250 / -250 Weight 87 kg Intake: IV 600 / 600 250 / 250 Cardene Inj 25 MG In NS Inj 240 500 / 500 250 / 250 ML @ 5 MG/HR 50 mls/hr IV.CONT TITRATE PRN Rx#:[id number] Keppra 1000 mg/100 mL Premix 100 / 100 100 ML @ 400 mls/hr IV.SIG ONCE ONE Rx#:[id number] Output: Urine 500 / 500 Other: # Voids 1 Weight On Admission 87 kg Narrative: A&O x 3 CN II -XII intact Motor 5/5 UE / LE Sensation intact Results - Laboratory Findings CBC and BMP: 02/27/18 03:53 02/27/18 03:53 Abnormal lab findings: Abnormal Labs 02/26/18 02/26/18 02/26/18 07:25 07:25 17:20 WBC 13.0 H RBC 3.49 L Hgb 10.9 L Hct 33.0 L RDW Hill % (Auto) 15.3 H Baso % (Auto) 2.9 H Neut # (Auto) 7.8 H Hill # (Auto) 2.0 H Baso # (Auto) 0.4 H Monocytes % (Manual) Abs Neuts (Manual) Nucleated RBCs/100 WBC Platelet Morphology Ovalocytes Chloride BUN 21 H Estimated GFR 59 L POC Glucose 130 H Random Glucose 131 H Calcium 8.4 L Troponin I Less than 0.02 L Urine Clarity Ur Leukocyte Esterase Urine WBC Urine Mucus 02/26/18 02/27/18 02/27/18 21:21 03:53 03:53 WBC 12.2 H RBC 3.19 L Hgb 10.3 L Hct 30.5 L RDW 17.4 H Hill % (Auto) 21.6 H Baso % (Auto) Neut # (Auto) 8.1 H Hill # (Auto) 2.6 H Baso # (Auto) Monocytes % (Manual) 23 H Abs Neuts (Manual) 7.9 H Nucleated RBCs/100 WBC 2 H Platelet Morphology Enlarged H Ovalocytes 1+ H Chloride 109 H BUN Estimated GFR 81 L POC Glucose 126 H Random Glucose 108 H Calcium 8.0 L Troponin I Urine Clarity Ur Leukocyte Esterase Urine WBC Urine Mucus 02/27/18 04:45 WBC RBC Hgb Hct RDW Hill % (Auto) Baso % (Auto) Neut # (Auto) Hill # (Auto) Baso # (Auto) Monocytes % (Manual) Abs Neuts (Manual) Nucleated RBCs/100 WBC Platelet Morphology Ovalocytes Chloride BUN Estimated GFR POC Glucose Random Glucose Calcium Troponin I Urine Clarity Hazy H Ur Leukocyte Esterase Moderate H Urine WBC 42 H Urine Mucus Few H Assessment and Plan - Plan head CT: showing left parafalcine SDH with 14mm thickness, no mass effect or midline shift, no blood thinners 82yoF with the above, GCS [address] today, then transfer to floor Continue Kebryanra 500bid x 7d Follow up CT on discharge in 2-3 days then in 2-4 weeks on follow-up in Neurosurgery clinic PT mobilize, Act As Tolerated
--- NOTE | 2018-02-27 08:19 | CT ---
EXAM DATE: 02/27/2018 8:13 AM EST AGE/SEX: 82 years / Female INDICATIONS: Subdural hematoma, Dizziness CLINICAL DATA: This is the patient's subsequent encounter. Patient reports that signs and symptoms h ave been present for 1 day and indicates a pain score of 0/10. MEDICAL/SURGICAL HISTORY: Hypertension. Hypothyroidism. Appendectomy. Hysterectomy. Acoustic Neur cheryl left ear removed, Neck surgery RADIATION DOSE: 36.46 CTDI (mGy) COMPARISON: [facility], CT HEAD W/O CONTRAST, 02/26/2018. . TECHNIQUE: CT of the head without contrast. Using automated exposure control and adjustment of the mA and/or kV according to patient size, radiation dose was kept as low as reasonably achievable to ob tain optimal diagnostic quality images. DICOM format image data is available electronically for revi ew and comparison. FINDINGS: Interhemispheric subdural hemorrhage is again seen, maximal transverse width of 1.2 cm, slightly decr eased in prominence from the previous study. Trace left frontal subdural hemorrhage is also decreased in prominence. The left temporal extra-axial blood is stable on axial image 9. The ventricles and ci sterns are of normal size and configuration. Previous left occipital craniotomy. CONCLUSION: 1. Slight decrease transverse width of interhemispheric subdural hemorrhage and decreased left front al blood. 2. Stable left temporal extra-axial hemorrhage without underlying mass effect. . Electronically signed by: Jamel Swenson MD 02/27/2018 8:18 AM EST
[2018-02-27] MEDS: Docusate Sodium 100 MG Capsule PO SCH ×2 (09:13→20:11)
[2018-02-27] MEDS: Allopurinol 100 MG Tablet PO SCH (09:13)
[2018-02-27] MEDS: Famotidine 20 MG Tablet PO SCH ×2 (09:13→20:12)
[2018-02-27] MEDS: levETIRAcetam 500 MG Tablet PO SCH ×2 (09:13→20:12)
[2018-02-27] MEDS: Divalproex 250 MG ER Tablet PO SCH (09:13)
--- NOTE | 2018-02-27 11:30 | ECHRPT ---
Indication: SYNCOPE CONCLUSIONS Normal left ventricular size. Mild concentric left ventricular hypertrophy. The left ventricular systolic function is normal with an estimated ejection fraction in the range of 55-60%. Mild mitral valve regurgitation. Trivial pulmonary valve regurgitation. Trace pericardial effusion. BP: / HR: Rhythm: Sinus MEASUREMENTS (Male / Female) Normal Values Technical Quality:Fair 2D ECHO LV Diastolic Diameter PLAX 4.9 cm 4.2 - 5.9 / 3.9 - 5.3 cm LV Systolic Diameter PLAX 3.4 cm IVS Diastolic Thickness 1.2 cm 0.6 - 1.0 / 0.6 - 0.9 cm LVPW Diastolic Thickness 1.2 cm 0.6 - 1.0 / 0.6 - 0.9 cm LV Relative Wall Thickness 0.5 RV Internal Dim ED PLAX 2.8 cm LVOT Diameter 1.8 cm Aortic Root Diameter 2.9 cm LA Systolic Diameter LX 3.5 cm 3.0 - 4.0 / 2.7 - 3.8 cm M-MODE AV Cusp Separation MM 1.8 cm DOPPLER AV Peak Velocity 150.0 cm/s AV Peak Gradient 9.0 mmHg AV Mean Gradient 5.0 mmHg AV Velocity Time Integral 31.6 cm LVOT Peak Velocity 104.0 cm/s LVOT Peak Gradient 4.3 mmHg LVOT Velocity Time Integral 23.4 cm AV Area Cont Eq vti 1.9 cm AV Area Cont Eq pk 1.8 cm Mitral E Point Velocity 119.0 cm/s Mitral A Point Velocity 74.7 cm/s Mitral E to A Ratio 1.6 LV E' Lateral Velocity 11.5 cm/s Mitral E to LV E' Lateral Ratio 10.3 LV E' Septal Velocity 6.8 cm/s Mitral E to LV E' Septal Ratio 17.4 TR Peak Velocity 166.0 cm/s TR Peak Gradient 11.0 mmHg PV Peak Velocity 59.4 cm/s PV Peak Gradient 1.4 mmHg FINDINGS LEFT VENTRICLE Normal left ventricular size. Mild concentric left ventricular hypertrophy. The left ventricular systolic function is normal with an estimated ejection fraction in the range of 55-60%. RIGHT VENTRICLE Normal right ventricular size and systolic function. LEFT ATRIUM The left atrial size is normal. RIGHT ATRIUM The right atrial size is normal. ATRIAL SEPTUM No atrial level shunt is demonstrated by color flow Doppler interrogation. AORTA The aortic root and proximal ascending aorta are normal in size on limited imaging. MITRAL VALVE Mild mitral valve regurgitation. AORTIC VALVE Trileaflet aortic valve. No aortic valve stenosis or regurgitation. TRICUSPID VALVE Structurally normal tricuspid valve. No tricuspid valve stenosis or regurgitation. PULMONARY VALVE Trivial pulmonary valve regurgitation. VESSELS The inferior vena cava is normal in size. PERICARDIUM Trace pericardial effusion. Sanjay Martinez MD, FACC (Electronically Signed) Final Date:27 February 2018 11:29
[2018-02-27] MEDS: Morphine Sulfate Inj 2 MG/ML Vial IV.PUSH PRN (18:04)
[2018-02-27] MEDS: RUXOLITINIB 15 MG PO SCH (21:10)
--- NOTE | 2018-02-28 06:37 | P.DCO ---
- Physical Therapy Order: Evaluate and treat, Improve ambulation, Strength and gait training - Home Health Nursing Order: Medical education, Signs/symptoms of disease process, Medication education-adverse effect, Nursing assessment with vital signs - Case Management Consult Yes - Certification I have seen patient Lois Horowitz on 02/28/18. My clinical findings support the need for the requested home health care services because: Limited mobility due to disease progression, Patient has SOB, Deconditioned with increased weakness, Limited ability to care for self, High risk of falls I certify that my clinical findings support that this patient is homebound because: Impaired cognitive ability/safety, Unsteady gait/balance, Unsafe to leave home unassisted, Unable to use public transportation
[2018-02-28] MEDS: Levothyroxine 112 MCG Tablet PO SCH (06:52)
--- NOTE | 2018-02-28 08:33 | P.NPEVAL ---
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 This patient fell at home. Head CT showed left temporal parietal SDH. This patient has a history of acoustic neuroma s/p resection x 10 years ago. She is referred for baseline neurobehavioral status examination per trauma protocol to assess cognitive, behavioral and emotional aspects of the injury and to provide treatment recommendations. [facility] - History History Provided By: Patient - Medical History Medical History: Medical History (Last Reviewed 02/28/18 @ 07:51 by Godwin Mitchell) Acoustic neuroma Myelofibrosis Acute torn meniscus of knee Carpal tunnel syndrome HTN (hypertension) High cholesterol History of hysterectomy Hypothyroid Trigger finger - Surgical History Surgical History: Surgical History (Last Reviewed 02/27/18 @ 08:45 by Karen Gaming) History of neck surgery Hx of appendectomy - Tobacco History Second Hand Smoke Exposure: No Tobacco Use In Past 30 Days: No Smoking Status: Former smoker Tobacco Type: Cigarettes - Alcohol History How Often Do You Have a Drink Containing Alcohol: 2 to 3 times a week - Substance Use History Substance History: No History of Abuse - Travel History Recent Travel in the [facility] Within the Last 8 Weeks: No - Immunization History Tetanus Immunization: <5 Years Hx Influenza Vaccine This Season: Yes Medications Active Medications Acetaminophen (Tylenol) 650 mg PO Q6H PRN PRN Reason: PAIN 1-10 AND/OR FEVER >101F Hydrocodone Bitart/Acetaminophen ([place] 5/325) 1 tab PO Q4H PRN PRN Reason: PAIN 1-5 Hydrocodone Bitart/Acetaminophen ([place] 7.5/325) 1 tab PO Q4H PRN PRN Reason: PAIN 6-10 Al Hydroxide/Mg Hydroxide (Milk Of Magnesia Liq) 30 ml PO BID [facility] Last Admin: 02/27/18 20:12 Dose: 30 ml Allopurinol (Zyloprim) 100 mg PO DAILY [facility] Last Admin: 02/27/18 09:13 Dose: 100 mg Bacitracin (Baciguent Oint) 1 applicatio TOPICAL BID [facility] Last Admin: 02/27/18 20:11 Dose: 1 applicatio Divalproex Sodium (Depakote Er) 250 mg PO DAILY [facility] Last Admin: 02/27/18 09:13 Dose: 250 mg Docusate Sodium (Colace) 100 mg PO BID [facility] Last Admin: 02/27/18 20:11 Dose: 100 mg Famotidine (Pepcid) 20 mg PO BID [facility] Last Admin: 02/27/18 20:12 Dose: 20 mg Levetiracetam (Keppra) 500 mg PO BID [facility] Last Admin: 02/27/18 20:12 Dose: 500 mg Levothyroxine Sodium (Synthroid) 112 mcg PO DAILY@0600 [facility] Last Admin: 02/28/18 06:52 Dose: 112 mcg Levothyroxine Sodium (Synthroid) 25 mcg PO DAILY@0600 [facility] Last Admin: 02/28/18 06:51 Dose: 25 mcg Losartan Potassium (Cozaar) 50 mg PO DAILY [facility] Last Admin: 02/27/18 09:13 Dose: 50 mg Metoprolol Succinate (Toprol Xl) 50 mg PO DAILY [facility] Last Admin: 02/27/18 09:22 Dose: 50 mg Morphine Sulfate (Morphine Inj) 2 mg IV.PUSH Q4H PRN PRN Reason: BREAKTHROUGH PAIN Last Admin: 02/27/18 18:04 Dose: 2 mg Ondansetron HCl (Zofran Inj) 4 mg IV.PUSH Q8H PRN PRN Reason: NAUSEA OR VOMITING Last Admin: 02/26/18 14:21 Dose: 4 mg Pt Own Med ([Jakafi] (Ruxoltinib 15 Mg )) 0 each PO BID [facility] Last Admin: 02/27/18 21:10 Dose: 1 each Pravastatin Sodium (Pravachol) 40 mg PO QPM [facility] Last Admin: 02/27/18 17:48 Dose: 40 mg Sodium Chloride (Ns Flush) 2 ml IV.FLUSH UNSCH PRN PRN Reason: FLUSH AFTER USING IV ACCESS Triamterene/HCTZ (Dyazide 37.5/25 Mg) 1 cap PO DAILY [facility] Last Admin: 02/27/18 09:22 Dose: 1 cap Mental Status Assessment - Mental Status Orientation: oriented to: Self, Place Mental Status: Variable: Thought processing, Language/interactions, Attention, Learning/memory, Problem-solving, Visuospatial/construction, Self-regulation, Other Adjustment/Coping Assessment - Adjustment/Coping Adjustment/Coping: None: Awareness, Insight - Observation In terms of emotional functioning, the patient demonstrated normal adjustment. This patient demonstrated no signs of agitation, impulsivity or disinhibition, nor was there remarkable evidence of a formal thought disorder or psychosis. There was no evidence of depression or anxiety. Thought content was free from suicidal, homicidal or paranoid ideation, and thought processes were logical and goal-directed. The patients mood was euthymic, and her affect was stable and appropriate. The patient appears to possess insight and awareness into their situation and within the limits of this brief evaluation, improving judgment. Behavior - Behavior Treatment Engagement: Minimal - Observation Behaviorally, the patient demonstrated no signs of agitation, impulsivity or disinhibition. There was no remarkable evidence of a formal thought disorder or psychosis. - Goals LTG Status: Deferred STG Status: Deferred - Team Members Team Members: Neuropsychologist Diagnosis/Discharge Plan - Diagnosis (1) Mild major neurocognitive disorder as late effect of traumatic brain injury without behavioral disturbance Status: Acute Impression: 82 year old woman s/p complicated mild TBI 2T fall on 02/26/2018. Maximizing Acute Care Outcome: It is recommended that the patient be monitored for emergent behavioral impulsivity as the medical condition evolves. This patients neuropathological challenges may limit rehabilitation potential going forward, and these challenges will require specialized therapeutic skills to maximize outcome. Additionally, the patients family is experiencing ongoing issues of adjustment given the traumatic nature of the injury, and they may benefit from ongoing psychological assistance. At this point in the recovery process, the patient does have cognitive capacity as the patient is able to understand a situation and its likely consequences, and she is able to manipulate information rationally. Cognitive capacity will be assessed throughout the recovery process. - Discharge Planning Anticipated Problems: Ongoing areas of concern will include behavioral impulsivity, lack of insight and judgment, which is expected to improve with time and treatment. Treatment Plan: This clinician will continue to follow with you throughout the course of this patients acute treatment, and I will be available to meet with the patients family/support system to facilitate their understanding and the ongoing care of their family member. The goals of neuropsychological intervention shall be both educational and supportive to the family/support system as is deemed clinically appropriate. Thank you for the opportunity to assist in this patients care. Vj Saldana, Ph.D., ABPP Board Certified in Clinical Neuropsychology [place] [employer] [place] Licensed Psychologist #[id number]
[2018-02-28 08:39] LABS: Baso # (Auto) 0.1 th/mm3 (0.0-0.2); Baso % (Auto) 0.7 % (0.0-2.0); Eos % (Auto) 0.2 % (0.0-4.0); Hematocrit 32.3 % (35.0-46.0); Hemoglobin 10.5 gm/dL (11.6-15.3); Lymph # (Auto) 2.2 th/mm3 (1.0-4.8); Lymph % (Auto) 19.5 % (9.0-44.0); Mean Corpuscular HGB Conc 32.6 % (32.0-36.0); Mean Corpuscular Hemoglobin 31.6 pg (27.0-34.0); Mean Platelet Volume 10.4 fL (7.0-11.0); Mono # (Auto) 2.8 th/mm3 (0.0-0.9); Mono % (Auto) 24.3 % (0.0-8.0); Neut # (Auto) 6.3 th/mm3 (1.8-7.7); Neut % (Auto) 55.3 % (16.0-70.0); Platelet Count 195 th/mm3 (150-450); Red Blood Count 3.33 mil/mm3 (4.00-5.30); Red Cell Distribution Width 17.3 % (11.6-17.2); White Blood Count 11.4 th/mm3 (4.0-11.0)
[2018-02-28] MEDS: RUXOLITINIB 15 MG PO SCH ×2 (08:49→21:01)
[2018-02-28] MEDS: Allopurinol 100 MG Tablet PO SCH (08:50)
[2018-02-28] MEDS: Famotidine 20 MG Tablet PO SCH ×2 (08:50→21:00)
[2018-02-28] MEDS: Docusate Sodium 100 MG Capsule PO SCH ×2 (08:50→21:01)
[2018-02-28] MEDS: levETIRAcetam 500 MG Tablet PO SCH ×2 (08:50→21:00)
[2018-02-28] MEDS: Divalproex 250 MG ER Tablet PO SCH (08:51)
[2018-02-28 09:06] LABS: Alanine Aminotransferase 19 U/L (10-53); Albumin 3.4 g/dL (3.4-5.0); Anion Gap 8 meq/L (5-15); Aspartate Aminotransferase 15 U/L (15-37); Blood Urea Nitrogen 11 mg/dL (7-18); Calcium 8.5 mg/dL (8.5-10.1); Carbon Dioxide 29.6 meq/L (21.0-32.0); Chloride 103 meq/L (98-107); Glomerular Filtration Rate 69 mL/min (>89); Glucose,Random 103 mg/dL (74-106); Potassium 4.2 meq/L (3.5-5.1); Sodium 141 meq/L (136-145)
[2018-02-28 09:08] LABS: Alkaline Phosphatase 66 U/L (45-117); Total Protein 7.2 g/dL (6.4-8.2)
[2018-02-28] MEDS ORDERED: Sodium Chloride 0.9% 2 ML Flush PRN IV.FLUSH (09:33)
[2018-02-28 09:34] LABS: Lymphocytes 21 % (9-44); Metamyelocytes 2 % (0-1); Monocytes 18 % (0-8); Myelocytes 1 % (0-0); Ovalocytes 1+; Platelet Estimate Normal (Normal); Tear Drop Cells 1+
--- NOTE | 2018-02-28 09:42 | P.PNNS ---
Subjective Interval history: Pt awake and alert. States she chronically has a left sided headache in area of her acoustic neuroma surgery. She gets intermittently frontal headaches since her fall. No n/v now as that has resolved. She denies any weakness. <Allen Bowling - Last Filed: 02/28/18 09:37> Physical Exam Vital signs: Vital Signs 02/27/18 09:45 02/27/18 10:00 02/27/18 10:13 Temperature Pulse Rate 62 61 61 Respiratory Rate 17 14 16 Blood Pressure 169/71 H Pulse Oximetry 02/27/18 10:15 02/27/18 10:30 02/27/18 10:45 Temperature Pulse Rate 70 73 69 Respiratory Rate 31 H 34 H 31 H Blood Pressure Pulse Oximetry 02/27/18 11:00 02/27/18 11:15 02/27/18 11:30 Temperature Pulse Rate 62 64 62 Respiratory Rate 31 H 43 H 21 Blood Pressure Pulse Oximetry 02/27/18 11:45 02/27/18 12:00 02/27/18 12:15 Temperature Pulse Rate 67 66 61 Respiratory Rate 48 H 29 H Blood Pressure Pulse Oximetry 02/27/18 12:28 02/27/18 12:49 02/27/18 12:50 Temperature 98.8 F Pulse Rate 64 61 70 Respiratory Rate 31 H 19 34 H Blood Pressure 147/66 H Pulse Oximetry 100 02/27/18 12:51 02/27/18 15:54 02/27/18 16:00 Temperature 98.3 F Pulse Rate 70 68 68 Respiratory Rate 23 21 21 Blood Pressure 138/61 Pulse Oximetry 97 02/27/18 16:01 02/27/18 17:30 02/27/18 19:00 Temperature Pulse Rate 68 65 72 Respiratory Rate 34 H 33 H 22 Blood Pressure Pulse Oximetry 02/27/18 19:15 02/27/18 19:30 02/27/18 19:45 Temperature Pulse Rate 80 80 80 Respiratory Rate 22 26 H 36 H Blood Pressure Pulse Oximetry 02/27/18 20:00 02/27/18 20:26 02/27/18 20:30 Temperature 98.6 F Pulse Rate 84 75 73 Respiratory Rate 20 19 20 Blood Pressure 177/81 H Pulse Oximetry 98 02/27/18 20:45 02/27/18 21:00 02/27/18 21:15 Temperature Pulse Rate 62 60 60 Respiratory Rate 19 16 16 Blood Pressure Pulse Oximetry 02/27/18 21:30 02/27/18 21:45 02/27/18 22:00 Temperature Pulse Rate 57 L 54 L 54 L Respiratory Rate 18 18 16 Blood Pressure Pulse Oximetry 02/27/18 22:15 02/27/18 22:30 02/27/18 22:45 Temperature Pulse Rate 54 L 54 L 54 L Respiratory Rate 17 17 17 Blood Pressure Pulse Oximetry 02/27/18 23:00 02/27/18 23:15 02/27/18 23:30 Temperature Pulse Rate 55 L 55 L 58 L Respiratory Rate 18 27 H 32 H Blood Pressure Pulse Oximetry 02/27/18 23:45 02/28/18 00:00 02/28/18 02:14 Temperature 98.7 F 98.9 F Pulse Rate 59 L 55 L 66 Respiratory Rate 35 H 21 20 Blood Pressure 155/70 H Pulse Oximetry 98 95 02/28/18 02:28 02/28/18 03:45 02/28/18 06:30 Temperature 98.6 F Pulse Rate 65 Respiratory Rate 20 22 17 Blood Pressure 144/65 H Pulse Oximetry 98 02/28/18 08:00 Temperature 98 F Pulse Rate 62 Respiratory Rate 18 Blood Pressure 120/74 Pulse Oximetry 99 Intake & Output 02/27/18 02/28/18 02/28/18 18:59 06:59 18:59 Intake Total 485 / 485 Balance 485 / 485 Weight 87.09 kg Intake: IV 125 / 125 Cardene Inj 25 MG In NS Inj 240 125 / 125 ML @ 5 MG/HR 50 mls/hr IV.CONT TITRATE PRN Rx#:[id number] Oral 360 / 360 Other: # Voids 5 1 Date of Last Bowel Movement 02/27/18 02/27/18 # Bowel Movements 3 - Constitutional no acute distress - Routine HEENT Exam Head: Present: atraumatic Eye: Present: PERRL. Absent: conjunctival icterus ENT: Present: oropharynx clear - Routine Neck Exam Present: trachea midline - Routine Respiratory Exam Present: CTA bilaterally. Absent: respiratory distress, rhonchi, wheezes - Routine Cardiovascular Exam Present: RRR, S1, S2. Absent: murmur - Routine Abdominal Exam Present: soft, normoactive bowel sounds. Absent: tenderness, distended - Routine Extremities Exam Absent: cyanosis, edema - Routine Skin Exam Present: intact, ecchymosis (scattered small amounts on extremities.). Absent: cyanosis, erythema - Routine Neurological Exam Present: alert, oriented X3, moving all extremities, normal speech. Absent: sensory deficit, motor deficit, altered mental status, facial asymmetry - Detailed Neurological Exam: Coma Scale Eye Opening: Spontaneous Verbal Response: Oriented Motor Response: Obey commands Kati Coma Scale Total: 15 - Routine Psychiatric Exam Present: normal affect, cooperative. Absent: anxious, agitated <Allen Bowling - Last Filed: 02/28/18 09:37> Vital signs: Vital Signs 02/27/18 12:28 02/27/18 12:49 02/27/18 12:50 Temperature 98.8 F Pulse Rate 64 61 70 Respiratory Rate 31 H 19 34 H Blood Pressure 147/66 H Pulse Oximetry 100 02/27/18 12:51 02/27/18 15:54 02/27/18 16:00 Temperature 98.3 F Pulse Rate 70 68 68 Respiratory Rate 23 21 21 Blood Pressure 138/61 Pulse Oximetry 97 02/27/18 16:01 02/27/18 17:30 02/27/18 19:00 Temperature Pulse Rate 68 65 72 Respiratory Rate 34 H 33 H 22 Blood Pressure Pulse Oximetry 02/27/18 19:15 02/27/18 19:30 02/27/18 19:45 Temperature Pulse Rate 80 80 80 Respiratory Rate 22 26 H 36 H Blood Pressure Pulse Oximetry 02/27/18 20:00 02/27/18 20:26 02/27/18 20:30 Temperature 98.6 F Pulse Rate 84 75 73 Respiratory Rate 20 19 20 Blood Pressure 177/81 H Pulse Oximetry 98 02/27/18 20:45 02/27/18 21:00 02/27/18 21:15 Temperature Pulse Rate 62 60 60 Respiratory Rate 19 16 16 Blood Pressure Pulse Oximetry 02/27/18 21:30 02/27/18 21:45 02/27/18 22:00 Temperature Pulse Rate 57 L 54 L 54 L Respiratory Rate 18 18 16 Blood Pressure Pulse Oximetry 02/27/18 22:15 02/27/18 22:30 02/27/18 22:45 Temperature Pulse Rate 54 L 54 L 54 L Respiratory Rate 17 17 17 Blood Pressure Pulse Oximetry 02/27/18 23:00 02/27/18 23:15 02/27/18 23:30 Temperature Pulse Rate 55 L 55 L 58 L Respiratory Rate 18 27 H 32 H Blood Pressure Pulse Oximetry 02/27/18 23:45 02/28/18 00:00 02/28/18 02:14 Temperature 98.7 F 98.9 F Pulse Rate 59 L 55 L 66 Respiratory Rate 35 H 21 20 Blood Pressure 155/70 H Pulse Oximetry 98 95 02/28/18 02:28 02/28/18 03:45 02/28/18 06:30 Temperature 98.6 F Pulse Rate 65 Respiratory Rate 20 22 17 Blood Pressure 144/65 H Pulse Oximetry 98 02/28/18 08:00 Temperature 98 F Pulse Rate 62 Respiratory Rate 18 Blood Pressure 120/74 Pulse Oximetry 99 Intake & Output 02/27/18 02/28/18 02/28/18 18:59 06:59 18:59 Intake Total 485 / 485 Balance 485 / 485 Weight 87.09 kg Intake: IV 125 / 125 Cardene Inj 25 MG In NS Inj 240 125 / 125 ML @ 5 MG/HR 50 mls/hr IV.CONT TITRATE PRN Rx#:[id number] Oral 360 / 360 Other: # Voids 5 1 Date of Last Bowel Movement 02/27/18 02/27/18 02/27/18 # Bowel Movements 3 <Edi Landa - Last Filed: 02/28/18 12:20> Assessment and Plan - Assessment (1) Acute subdural hematoma Code(s): S06.5X9A - Traumatic subdural hemorrhage with loss of consciousness of unspecified duration, initial encounter Status: Acute (2) Syncope Code(s): R55 - Syncope and collapse Status: Acute (3) Mild major neurocognitive disorder as late effect of traumatic brain injury without behavioral disturbance Code(s): S06.9X9S - Unspecified intracranial injury with loss of consciousness of unspecified duration, sequela; F02.80 - Dementia in other diseases classified elsewhere without behavioral disturbance Status: Acute - Plan head CT: showing left parafalcine SDH with 14mm thickness, no mass effect or midline shift, no blood thinners 82yoF with the above, GCS 15 Continue Keppra 500bid x 7d Follow up CT on discharge in 2-3 days then in 2-4 weeks on follow-up in Neurosurgery clinic PT mobilize, Act As Tolerated <Allen Bowling - Last Filed: 02/28/18 09:37> - Attending Attestation The exam, history, and the medical decision-making described in the above note were completed with the assistance of the mid-level provider. I reviewed and agree with the findings presented. I attest that I had a [id number] encounter with the patient on the same day, and personally performed and documented my assessment and findings in the medical record. <Edi Landa - Last Filed: 02/28/18 12:20>
--- NOTE | 2018-02-28 15:50 | P.PN ---
Subjective Interval history: Trauma PTD: 2 Patient asleep in bed during trauma rounds. Arouses easily. No distress noted. No complaints offered. Patient asking to go home. Physical Exam Vital signs: Vital Signs 02/27/18 15:54 02/27/18 16:00 02/27/18 16:01 Temperature 98.3 F Pulse Rate 68 68 68 Respiratory Rate 21 21 34 H Blood Pressure 138/61 Pulse Oximetry 97 02/27/18 17:30 02/27/18 19:00 02/27/18 19:15 Temperature Pulse Rate 65 72 80 Respiratory Rate 33 H 22 22 Blood Pressure Pulse Oximetry 02/27/18 19:30 02/27/18 19:45 02/27/18 20:00 Temperature 98.6 F Pulse Rate 80 80 84 Respiratory Rate 26 H 36 H 20 Blood Pressure Pulse Oximetry 98 02/27/18 20:26 02/27/18 20:30 02/27/18 20:45 Temperature Pulse Rate 75 73 62 Respiratory Rate 19 20 19 Blood Pressure 177/81 H Pulse Oximetry 02/27/18 21:00 02/27/18 21:15 02/27/18 21:30 Temperature Pulse Rate 60 60 57 L Respiratory Rate 16 16 18 Blood Pressure Pulse Oximetry 02/27/18 21:45 02/27/18 22:00 02/27/18 22:15 Temperature Pulse Rate 54 L 54 L 54 L Respiratory Rate 18 16 17 Blood Pressure Pulse Oximetry 02/27/18 22:30 02/27/18 22:45 02/27/18 23:00 Temperature Pulse Rate 54 L 54 L 55 L Respiratory Rate 17 17 18 Blood Pressure Pulse Oximetry 02/27/18 23:15 02/27/18 23:30 02/27/18 23:45 Temperature Pulse Rate 55 L 58 L 59 L Respiratory Rate 27 H 32 H 35 H Blood Pressure Pulse Oximetry 02/28/18 00:00 02/28/18 02:14 02/28/18 02:28 Temperature 98.7 F 98.9 F Pulse Rate 55 L 66 Respiratory Rate 21 20 20 Blood Pressure 155/70 H Pulse Oximetry 98 95 02/28/18 03:45 02/28/18 06:30 02/28/18 08:00 Temperature 98.6 F 98 F Pulse Rate 65 62 Respiratory Rate 22 17 18 Blood Pressure 144/65 H 120/74 Pulse Oximetry 98 99 02/28/18 12:00 Temperature 98.9 F Pulse Rate 58 L Respiratory Rate 18 Blood Pressure 158/98 H Pulse Oximetry 98 Intake & Output 02/27/18 02/28/18 02/28/18 18:59 06:59 18:59 Intake Total 485 / 485 Balance 485 / 485 Weight 87.09 kg Intake: IV 125 / 125 Cardene Inj 25 MG In NS Inj 240 125 / 125 ML @ 5 MG/HR 50 mls/hr IV.CONT TITRATE PRN Rx#:[id number] Oral 360 / 360 Other: # Voids 5 1 Date of Last Bowel Movement 02/27/18 02/27/18 02/27/18 # Bowel Movements 3 Narrative: GENERAL: This is a 82-year-old female lying in bed. No distress noted. SKIN: Warm and dry. HEAD: Atraumatic. Normocephalic. EYES: PERRLA ENT: No nasal bleeding or discharge. Mucous membranes pink and moist. NECK: Trachea midline. No JVD. CARDIOVASCULAR: Regular rate and rhythm. RESPIRATORY: No accessory muscle use. Lungs are clear to auscultation. Breath sounds equal bilaterally. No distress or dyspnea. GASTROINTESTINAL: BS + x 4 quads. Abdomen soft, non-tender, nondistended. MUSCULOSKELETAL: Extremities without cyanosis, or edema. + peripheral pulses x 4 extremities. Warm with good capillary refill and sensation. MAEW. NEUROLOGICAL: Awake and alert x 3. Normal speech and pattern. Results - Labs CBC & Chem 7: 02/28/18 07:30 02/28/18 07:30 Laboratory Results - last 24 hr 02/28/18 02/28/18 07:30 07:30 WBC 11.4 H RBC 3.33 L Hgb 10.5 L Hct 32.3 L MCV 97.0 MCH 31.6 MCHC 32.6 RDW 17.3 H Plt Count 195 MPV 10.4 Prelim Diff (Auto) Slide review pending Neut % (Auto) 55.3 Lymph % (Auto) 19.5 Nicholas % (Auto) 24.3 H Eos % (Auto) 0.2 Baso % (Auto) 0.7 Neut # (Auto) 6.3 Lymph # (Auto) 2.2 Nicholas # (Auto) 2.8 H Eos # (Auto) 0.0 Baso # (Auto) 0.1 WBC Differential Manual diff final Seg Neuts % (Manual) 47 Band Neuts % (Manual) 8 H Lymphocytes % (Manual) 21 Monocytes % (Manual) 18 H Basophils % (Manual) 3 H Metamyelocytes % (Man) 2 H Myelocytes % (Man) 1 H Abs Neuts (Manual) 6.6 Differential Comment . Platelet Estimate Normal Platelet Morphology Enlarged H Tear Drop Cells 1+ H Ovalocytes 1+ H Sodium 141 Potassium 4.2 Chloride 103 Carbon Dioxide 29.6 Anion Gap 8 BUN 11 Creatinine 0.80 Estimated GFR 69 L Random Glucose 103 Calcium 8.5 Total Bilirubin 0.5 AST 15 ALT 19 Alkaline Phosphatase 66 Total Protein 7.2 Albumin 3.4 Microbiology 02/27/18 04:45 Clean Catch Urine Urine Culture - Preliminary Immature growth - reincubate Assessment and Plan - Assessment (1) Acute subdural hematoma Code(s): S06.5X9A - Traumatic subdural hemorrhage with loss of consciousness of unspecified duration, initial encounter Status: Acute (2) Syncope Code(s): R55 - Syncope and collapse Status: Acute (3) Mild major neurocognitive disorder as late effect of traumatic brain injury without behavioral disturbance Code(s): S06.9X9S - Unspecified intracranial injury with loss of consciousness of unspecified duration, sequela; F02.80 - Dementia in other diseases classified elsewhere without behavioral disturbance Status: Acute - Plan COMANCHE: This is a 82-year-old female who sustained a fall. Possible syncopal event. Patient states that she was walking home, and woke up on the floor. Patient vomited in the ED. INJURIES: LEFT SDH *Hepatic cyst PMHx: HTN. HLD. Carpal tunnel. Myelofibrosis. Hypothyroid. Acoustic neuroma (s/ p resection 2007) Smoker. ETOH 3x a week) Procedures: Consults: Neurosurgery. Neuropsych. Case management. Diet: Cardiac diet. Tolerating po diet. Encourage good po intake with each meal. Pulmonary: Encourage good pulmonary toileting. IS at bedside and pt encouraged to use. Rationale for use explained to patient, and verbalized understanding. PAIN Management: Tylenol. [place] 5-7.5 mg q4h. Morphine 2 mg q 4h Activity: OOB. PT and OT ordered. GI prophylaxis: Pepcid 20 mg BID. Bowel regimen: Colace. MOM. LBM: 02/28 DVT prophylaxis: Mechanical VTE with SCDs. Chemical management contraindicated due to SDH. DC Planning: Case management consulted for assistance with final discharge disposition. PT recommends [facility] PT. [id number] completed. Patient states she has a cane at home. Emotional support provided to patient at bedside and plan of care discussed. Discussed with RN at bedside. Discussed pt condition and plan of care with collaborating trauma surgeon. Patient is hemodynamically stable and being managed on the med/surg floor. The trauma team will round each day, and evaluate plan of care on a daily basis. LEFT SDH Syncopal event Neurosurgery consulted and assisting in management and care 02/27: Ct brain -decrease of SDH and left frontal blood. Stable left temporal hemorrhage. 02/27: ECHO - 55-60%. Mild MVR. (trace pericardial effusion) 02/26: Carotid US RIGHT = mild plaque. LEFT = mild to moderate plaque Supportive care Serial neuro checks CT brain for any change in neurological function Seizure precautions Seizure prophylaxis -Keppra p.o. Pain management Encourage out of bed PT and OT ordered Bowel regimen SCDs for DVT prophylaxis Neuropsych consulted and assisting in management and care Neurosurgery wants to continue to monitor her on an inpatient status Awaiting neurosurgery clearance for discharge HTN. HLD. Carpal tunnel. Myelofibrosis. Hypothyroid. Acoustic neuroma (s/p resection 2007) Smoker. ETOH 3x a week Vital signs every 4 hours and as needed Resume home medications HCTZ 25 mg QD. Lopressor XL 50 mg QD. Losartan 50 mg QD. (Statin) Divalproex Discussed the importance of abstaining from smoking and alcohol (2) Syncope Qualifiers: Syncope type: unspecified Qualified Code(s): R55 - Syncope and collapse
[2018-02-28] MEDS: Sodium Chloride 0.9% 2 ML Flush BID IV.FLUSH SCH (21:01)
[2018-03-01 05:49] LABS: Baso # (Auto) 0.1 th/mm3 (0.0-0.2); Baso % (Auto) 0.7 % (0.0-2.0); Eos % (Auto) 0.1 % (0.0-4.0); Hematocrit 31.4 % (35.0-46.0); Hemoglobin 10.6 gm/dL (11.6-15.3); Lymph # (Auto) 2.8 th/mm3 (1.0-4.8); Lymph % (Auto) 22.1 % (9.0-44.0); Mean Corpuscular HGB Conc 33.8 % (32.0-36.0); Mean Corpuscular Hemoglobin 32.1 pg (27.0-34.0); Mean Platelet Volume 10.9 fL (7.0-11.0); Mono # (Auto) 2.9 th/mm3 (0.0-0.9); Mono % (Auto) 22.7 % (0.0-8.0); Neut % (Auto) 54.4 % (16.0-70.0); Platelet Count 218 th/mm3 (150-450); Red Cell Distribution Width 17.4 % (11.6-17.2); White Blood Count 12.9 th/mm3 (4.0-11.0)
[2018-03-01 06:10] LABS: Albumin 3.7 g/dL (3.4-5.0); Anion Gap 8 meq/L (5-15); Aspartate Aminotransferase 18 U/L (15-37); Blood Urea Nitrogen 16 mg/dL (7-18); Calcium 8.5 mg/dL (8.5-10.1); Carbon Dioxide 28.2 meq/L (21.0-32.0); Chloride 102 meq/L (98-107); Glomerular Filtration Rate 53 mL/min (>89); Glucose,Random 109 mg/dL (74-106); Potassium 3.7 meq/L (3.5-5.1); Sodium 138 meq/L (136-145)
[2018-03-01 06:11] LABS: Alanine Aminotransferase 17 U/L (10-53)
[2018-03-01 06:13] LABS: Alkaline Phosphatase 71 U/L (45-117); Total Protein 7.7 g/dL (6.4-8.2)
[2018-03-01] MEDS: Levothyroxine 112 MCG Tablet PO SCH (06:39)
[2018-03-01 07:36] LABS: Lymphocytes 25 % (9-44); Metamyelocytes 2 % (0-1); Monocytes 16 % (0-8); Myelocytes 1 % (0-0); Tallied Nucleated RBC 2 (0-0)
[2018-03-01 07:37] LABS: Ovalocytes 1+; Tear Drop Cells 1+
[2018-03-01 07:38] LABS: Platelet Estimate Normal (Normal)
--- NOTE | 2018-03-01 08:34 | P.PNNPSY ---
- Behavior Intact: Impulsive/agitated - Cognitive Intact: Cognitive, Attention/concentration, Confused/orientation, Insight/ awareness, Judgment/problem solving, Memory - Progress Notes/Response to Treatment Contents of Sessions: Adjustment, Level of consciousness Time with Patient: 15 minutes Premorbid Psychological Status: Premorbid Cognitive, Emotional and Behavioral Status: Stable. 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 The patient has no prior psychiatric difficulties, as described above. Substance abuse history is unremarkable. Behavioral Reactions of Patient and Family/Support System: Stable. The patients family is experiencing ongoing issues of adjustment given the nature of the injury, and this aspect of recovery will require ongoing monitoring. Emotional/Behavioral Status of Patient and Family/Support System: Stable. Pertinent issues, if appropriate to this patients clinical care, are described in detail above. Maximizing Acute Care Outcome: It is recommended that the patient be monitored for emergent behavioral impulsivity as the medical condition evolves. This patients neuropathological challenges may limit rehabilitation potential going forward, and these challenges will require specialized therapeutic skills to maximize outcome. Additionally, the patients family is experiencing ongoing issues of adjustment given the traumatic nature of the injury, and they may benefit from ongoing psychological assistance. At this point in the recovery process, the patient does have cognitive capacity as the patient is able to understand a situation and its likely consequences, and she is able to manipulate information rationally. Cognitive capacity will be assessed throughout the recovery process. Anticipated Problems: Ongoing areas of concern will include behavioral impulsivity, lack of insight and judgment, which is expected to improve with time and treatment. Treatment Plan: This clinician will continue to follow with you throughout the course of this patients acute care treatment, and I will be available to meet with the patient s family/support system to facilitate their understanding and the ongoing care of their family member. The goals of neuropsychological intervention shall be both educational and supportive to the family/support system as is deemed clinically appropriate. [place] COG Scale: Level VII Impression: 82 year old woman s/p complicated mild TBI 2T fall on 02/26/2018. Progress Note Narrative: PTD 3. The patient is neurobehaviorally stable, with no agitation/ restlessness. She is Rancho VII. She was sleeping during rounds. I will follow. - Diagnosis (1) Mild major neurocognitive disorder as late effect of traumatic brain injury without behavioral disturbance Status: Acute
[2018-03-01 08:44] VITALS: RESP 18
[2018-03-01] MEDS: Divalproex 250 MG ER Tablet PO SCH (09:13)
[2018-03-01] MEDS: Allopurinol 100 MG Tablet PO SCH (09:13)
[2018-03-01] MEDS: Famotidine 20 MG Tablet PO SCH (09:14)
[2018-03-01] MEDS: levETIRAcetam 500 MG Tablet PO SCH (09:14)
[2018-03-01] MEDS: RUXOLITINIB 15 MG PO SCH (09:14)
[2018-03-01] MEDS: Docusate Sodium 100 MG Capsule PO SCH (09:16)
[2018-03-01] MEDS: Sodium Chloride 0.9% 2 ML Flush BID IV.FLUSH SCH (09:18)
--- NOTE | 2018-03-01 09:33 | P.PNNS ---
Subjective Interval history: Pt awakens easily to voice. Mild intermittent headache. No n/v. No muscle weakness. She has been ambulating around room and floor. She states steadiness is improving. Physical Exam Vital signs: Vital Signs 02/28/18 12:00 02/28/18 16:00 02/28/18 20:00 Temperature 98.9 F 98.7 F 98.1 F Pulse Rate 58 L 63 64 Respiratory Rate 18 18 17 Blood Pressure 158/98 H 147/63 H 124/59 L Pulse Oximetry 98 95 92 L 02/28/18 21:09 03/01/18 00:00 03/01/18 04:00 Temperature 99.1 F 98.3 F Pulse Rate 65 57 L 71 Respiratory Rate 17 17 Blood Pressure 138/69 146/72 H Pulse Oximetry 95 94 L 03/01/18 08:00 Temperature 98.5 F Pulse Rate 60 Respiratory Rate 18 Blood Pressure 136/65 Pulse Oximetry 93 L Intake & Output 02/28/18 03/01/18 03/01/18 18:59 06:59 18:59 Intake Total 1080 / 1080 Balance 1080 / 1080 Weight 89.6 kg Intake: Oral 1080 / 1080 Other: # Voids 4 5 Date of Last Bowel Movement 02/27/18 02/27/18 02/27/18 # Bowel Movements 4 - Constitutional no acute distress, cooperative - Routine HEENT Exam Head: Present: normocephalic Eye: Present: PERRL (Pupils 3mm bilaterally reactive bilaterally.) - Routine Respiratory Exam Present: CTA bilaterally. Absent: respiratory distress, rhonchi, wheezes - Routine Cardiovascular Exam Present: RRR, S1, S2. Absent: murmur - Routine Abdominal Exam Present: soft, normoactive bowel sounds. Absent: tenderness, distended - Routine Skin Exam Absent: cyanosis, erythema - Routine Neurological Exam Present: alert, oriented X3, moving all extremities, normal speech. Absent: sensory deficit, motor deficit, altered mental status - Routine Psychiatric Exam Present: cooperative Assessment and Plan - Assessment (1) Acute subdural hematoma Code(s): S06.5X9A - Traumatic subdural hemorrhage with loss of consciousness of unspecified duration, initial encounter Status: Acute (2) Syncope Code(s): R55 - Syncope and collapse Status: Acute Qualifiers: Syncope type: unspecified Qualified Code(s): R55 - Syncope and collapse (3) Mild major neurocognitive disorder as late effect of traumatic brain injury without behavioral disturbance Code(s): S06.9X9S - Unspecified intracranial injury with loss of consciousness of unspecified duration, sequela; F02.80 - Dementia in other diseases classified elsewhere without behavioral disturbance Status: Acute - Plan A: left parafalcine SDH with 14mm thickness, no mass effect or midline shift, no blood thinners 82yoF with the above, GCS 15 Continue Keppra 500bid x 7d Discussed with Dr. Landa and ervin to discharge home. Follow up in 2-3 weeks with a follow up CT head. Discussed precautions with pt.
[2018-03-01 13:14] VITALS: BP 159/67; PULSE 67; TEMP 98; O2SAT 92
--- NOTE | 2018-03-01 17:05 | P.DS ---
Date of admission: 02/26/18 10:55 Primary care physician: Dari Herring MD Brief History from admission: S/P Fall DS: Diagnosis - Discharge Diagnosis (1) Acute subdural hematoma Status: Acute (2) Syncope Status: Acute (3) Mild major neurocognitive disorder as late effect of traumatic brain injury without behavioral disturbance Status: Acute DS: Medications - Discharge Medications Prescriptions: hydrocodone-acetaminophen 1 tab PO Q4H PRN 3 Days #18 tab PRN Reason: Pain levetiracetam [Keppra] 500 mg PO BID 5 Days #10 tab DS: Summary Hospital Course: [place]:Patient states she was walking and passed out waking up on the floor. INJURIES: LEFT SDH PMHx: HTN. HLD. Carpal tunnel. Myelofibrosis. Hypothyroid. Acoustic neuroma (s/ p resection 2007) Tobacco use. LEFT SDH Neurosurgery consulted, F/U outpatient 02/27: Head CT brain -decreasing SDH and left frontal blood. Stable left temporal hemorrhage. Stable neuro checks Continue Keppra x 7 days Pain control Bowel regimen OOB- PT and OT ordered Neuropsychology consulted Neurosurgery cleared for DC Avoid second head injury Postconcussive education Syncope Supportive care 02/27: ECHO - 55-60%. Mild MVR. (trace pericardial effusion) 02/26: Carotid US - RIGHT = mild plaque. LEFT = mild to moderate plaque F/U with PCP in 1 week Plan of care discussed with patient and RN at bedside. Collaborating Trauma MD agrees with plan. Case management consulted to assist with discharge planning. Patient is clear from trauma surgery standpoint to safely DC home. - Time Spent with Patient Total time spent providing and/or coordinating discharge services: Greater than 30 minutes - Quality: VTE Deep Vein Thrombosis/Pulmonary Embolism Present on Admission: No Exam Vital signs: Vital Signs 02/28/18 20:00 02/28/18 21:09 03/01/18 00:00 Temperature 98.1 F 99.1 F Pulse Rate 64 65 57 L Respiratory Rate 17 Blood Pressure 124/59 L 138/69 Pulse Oximetry 92 L 95 03/01/18 04:00 03/01/18 08:00 03/01/18 12:00 Temperature 98.3 F 98.5 F 98 F Pulse Rate 71 60 67 Respiratory Rate 17 18 18 Blood Pressure 146/72 H 136/65 159/67 H Pulse Oximetry 94 L 93 L 92 L Intake & Output 02/28/18 03/01/18 03/01/18 18:59 06:59 18:59 Intake Total 1080 / 1080 Balance 1080 / 1080 Weight 89.6 kg Intake: Oral 1080 / 1080 Other: # Voids 4 5 Date of Last Bowel Movement 02/27/18 02/27/18 02/27/18 # Bowel Movements 4 Narrative: GENERAL: 82 year old well developed female sitting up in bed. SKIN: Warm and dry. CARDIOVASCULAR: Regular rate and rhythm. RESPIRATORY: Lungs clear to auscultation bilaterally. GASTROINTESTINAL: Abdomen soft, non-tender, nondistended. + BS. MUSCULOSKELETAL: Extremities without cyanosis or edema. MAEW, + perfused NEUROLOGICAL: Alert and oriented. Speech clear. Results Procedures completed during hospitalization: . Labs on day of discharge: Labs from last 24 hours 03/01/18 03/01/18 04:42 04:42 WBC 12.9 H RBC 3.30 L Hgb 10.6 L Hct 31.4 L MCV 95.0 MCH 32.1 MCHC 33.8 RDW 17.4 H Plt Count 218 MPV 10.9 Prelim Diff (Auto) Slide review pending Neut % (Auto) 54.4 Lymph % (Auto) 22.1 [place] % (Auto) 22.7 H Eos % (Auto) 0.1 Baso % (Auto) 0.7 Neut # (Auto) 7.0 Lymph # (Auto) 2.8 [place] # (Auto) 2.9 H Eos # (Auto) 0.0 Baso # (Auto) 0.1 WBC Differential Manual diff final Seg Neuts % (Manual) 50 Band Neuts % (Manual) 5 Lymphocytes % (Manual) 25 Monocytes % (Manual) 16 H Basophils % (Manual) 1 Metamyelocytes % (Man) 2 H Myelocytes % (Man) 1 H Abs Neuts (Manual) 7.5 Nucleated RBCs/100 WBC 2 H Differential Comment . Platelet Estimate Normal Platelet Morphology Enlarged H Tear Drop Cells 1+ H Ovalocytes 1+ H Sodium 138 Potassium 3.7 Chloride 102 Carbon Dioxide 28.2 Anion Gap 8 BUN 16 Creatinine 1.00 Estimated GFR 53 L Random Glucose 109 H Calcium 8.5 Total Bilirubin 0.6 AST 18 ALT 17 Alkaline Phosphatase 71 Total Protein 7.7 Albumin 3.7 - Impressions ITS Impressions Abdomen/Pelvis CT 02/26/18 07:19 CONCLUSION: 1. Atherosclerosis. 2. Hepatic cyst. 3. Diverticulosis. 4. No inflammatory changes are seen. Sacrum and Coccyx X-Ray 02/26/18 07:19 CONCLUSION: No acute findings. Carotid Doppler Study 02/26/18 15:32 CONCLUSION: 1. Right Internal Carotid Artery: Mild bifurcation atherosclerosis without hemodynamically significant narrowing. 2. Left Internal Carotid Artery: Mild to moderate bifurcation atherosclerosis without hemodynamically significant narrowing. Head CT 02/27/18 06:00 CONCLUSION: 1. Slight decrease transverse width of interhemispheric subdural hemorrhage and decreased left frontal blood. 2. Stable left temporal extra-axial hemorrhage without underlying mass effect. . Discharge Plan - Discharge Disposition Patient Disposition: /Home Health Service - Discharge Condition Condition: Stable - Discharge Order Discharge Orders: Discharge Order (Routine); Ordered 03/01/18 Ordered By: Merle Monroy Neurosurgery Clear for Discharge (Routine); Ordered 03/01/18 Ordered By: Allen Bowling - Discharge Details Anticipated Discharge Date: 02/28/18 Discharge Comment: Patient is clear from a trauma surgery standpoint to discharge home, once cleared by neurosurgery. - Physicians Team Primary Care Provider: Dari Herring Attending Provider: Barbara Duque Other Providers: Quang Villagran MD ; Ethan Henderson MD ; [employer] [employer] [facility] ; Jose Kemp MD ; Cori Ortega ARNP ; Kunal Gong MD ; Janessa Sutton MD ; Merle Monroy ARNP ; Barbara Duque MD ; Vj Saldana, PhD ; Jamel Faith MD
== END 2018-03-01 18:16 | disposition home health service (06) ==
LOC: PHED 06:58 → PHEDA 10:55 → N03 13:03 → N06 02-28 01:59
PROVIDERS: ADMIT Surgery; ATTEND Surgery

== ENCOUNTER 2018-03-06 02:24 | Observation (INO) ==
[2018-03-06] MEDS ORDERED: Morphine Sulfate Inj 2 MG/ML Vial IV.PUSH ONE (03:03)
[2018-03-06 03:18] LABS: Baso # (Auto) 0.1 th/mm3 (0.0-0.2); Baso % (Auto) 0.9 % (0.0-2.0); Eos % (Auto) 0.1 % (0.0-4.0); Hemoglobin 9.9 gm/dL (11.6-15.3); Lymph # (Auto) 1.7 th/mm3 (1.0-4.8); Mean Corpuscular HGB Conc 33.9 % (32.0-36.0); Mean Corpuscular Hemoglobin 32.2 pg (27.0-34.0); Mono # (Auto) 1.9 th/mm3 (0.0-0.9); Mono % (Auto) 20.8 % (0.0-8.0); Neut # (Auto) 5.6 th/mm3 (1.8-7.7); Neut % (Auto) 60.2 % (16.0-70.0); Platelet Count 184 th/mm3 (150-450); Red Blood Count 3.06 mil/mm3 (4.00-5.30); Red Cell Distribution Width 16.8 % (11.6-17.2); White Blood Count 9.3 th/mm3 (4.0-11.0)
[2018-03-06 03:37] LABS: Bacteria,Urine Rare /hpf; Bilirubin,Urine Negative (Negative); Clarity,Urine Hazy (Clear); Color,Urine Yellow (Yellw/Straw); Glucose,Urine (UA) Negative (Negative); Leukocyte Esterase,Urine Small (Negative); Mucus,Urine Few /lpf (Occasional); Nitrite,Urine Negative (Negative); Squamous Epithelial Cell,Urine 3 /hpf (0-5)
[2018-03-06 03:37] LABS: Alanine Aminotransferase 20 U/L (10-53); Albumin 3.4 g/dL (3.4-5.0); Anion Gap 9 meq/L (5-15); Aspartate Aminotransferase 17 U/L (15-37); Blood Urea Nitrogen 11 mg/dL (7-18); Calcium 8.2 mg/dL (8.5-10.1); Carbon Dioxide 24.7 meq/L (21.0-32.0); Chloride 109 meq/L (98-107); Glomerular Filtration Rate 59 mL/min (>89); Glucose,Random 112 mg/dL (74-106); Potassium 3.3 meq/L (3.5-5.1); Sodium 143 meq/L (136-145)
--- NOTE | 2018-03-06 03:38 | CT ---
EXAM DATE: 03/06/2018 3:25 AM EST AGE/SEX: 82 years / Female INDICATIONS: Trauma. Fall, CLINICAL DATA: This is the patient's initial encounter. Patient reports that signs and symptoms have been present for 1 day and indicates a pain score of 8/10. MEDICAL/SURGICAL HISTORY: Hypertension. Hypothyroidism. Subdural hematoma Hysterectomy. Appendec leobardo. Craniotomy. Cervical fusion RADIATION DOSE: 56.35 CTDI (mGy) COMPARISON: [facility] [place], CT HEAD W/O CONTRAST, 03/03/2018. . TECHNIQUE: CT of the head without contrast. Using automated exposure control and adjustment of the mA and/or kV according to patient size, radiation dose was kept as low as reasonably achievable to ob tain optimal diagnostic quality images. DICOM format image data is available electronically for revi ew and comparison. FINDINGS: Cerebrum: The ventricles are normal for age. No evidence of midline shift, mass lesion, or acute in farction. There is a subdural along the falx posteriorly measuring up to 7 mm across. There is some l ayering of hemorrhage along the tentorium. There is a small subdural hygroma across the left frontal extra-axial space without evidence of hemorrhage. There is no significant mass effect within the brai n parenchyma. The ventricles are normal in size. Posterior Fossa: The cerebellum and brainstem are intact. The 4th ventricle is midline. The cerebe llopontine angle is unremarkable. Extracranial: The visualized portion of the orbits is intact. Skull: The calvaria is intact. No evidence of skull fracture. CONCLUSION: 1. Continued subdural hematoma along the falx posteriorly and to the left of midline. It measures up to 7 mm across. Some hemorrhage layering along the tentorium as well. Stable left frontal subdural h ygroma without evidence of acute hemorrhage. No significant hemorrhage within the brain parenchyma. . Electronically signed by: Sanjay Meneses MD 03/06/2018 3:37 AM EST
[2018-03-06 03:41] LABS: Alkaline Phosphatase 75 U/L (45-117); Total Protein 7.2 g/dL (6.4-8.2)
--- NOTE | 2018-03-06 03:41 | CT ---
EXAM DATE: 03/06/2018 3:30 AM EST AGE/SEX: 82 years / Female INDICATIONS: Trauma. Fall. CLINICAL DATA: This is the patient's initial encounter. Patient reports that signs and symptoms have been present for 1 day and indicates a pain score of 8/10. MEDICAL/SURGICAL HISTORY: Hypertension. Hypothyroidism. Subdural hematoma Hysterectomy. Appe ndectomy. Craniotomy. Cervical fusion RADIATION DOSE: 21.77 CTDI (mGy) COMPARISON: No prior exams available for comparison. TECHNIQUE: Contiguous axial images were obtained using helical multirow detector technique. The vol umetric data was post-processed with multiplanar reconstruction in oblique axial, sagittal, and coron al planes. Using automated exposure control and adjustment of the mA and/or kV according to patient s ize, radiation dose was kept as low as reasonably achievable to obtain optimal diagnostic quality madeline ges. DICOM format image data is available electronically for review and comparison. FINDINGS: Vertebrae: Normal vertebral body height. The patient's undergone anterior cervical fusion from C5 to C7. There is an anterior metallic plate with bilateral screws. There is excellent incorporation of t he C5-C6 bone plug. There is some residual lucency along the inferior aspect of the C6-7 bone plug. T here is no complication with the hardware. The facet joints well aligned. There is no evidence of an acute fracture Alignment: Normal. No subluxation. C2-3: The bony spinal canal is normal in size. No evidence of disc bulge or herniation. The neural foramina are bilaterally patent. C3-4: The bony spinal canal is normal in size. No evidence of disc bulge or herniation. The neural foramina are bilaterally patent. Left-sided degenerative facet disease with narrowing and sclerosis. C4-5: The bony spinal canal is normal in size. No evidence of disc bulge or herniation. The neural foramina are bilaterally patent. C5-6: The bony spinal canal is normal in size. No evidence of disc bulge or herniation. The neural foramina are bilaterally patent. C6-7: The bony spinal canal is normal in size. No evidence of disc bulge or herniation. The neural foramina are bilaterally patent. C7-T1: The bony spinal canal is normal in size. No evidence of disc bulge or herniation. The neura l foramina are bilaterally patent. Impression: Anterior cervical fusion from C5 to C7 without complications. No evidence of an acute fra cture, lytic or blastic lesion. Electronically signed by: Sanjay Meneses MD 03/06/2018 3:40 AM EST
--- NOTE | 2018-03-06 03:55 | XR ---
EXAM DATE: 03/06/2018 3:52 AM EST AGE/SEX: 82 years / Female INDICATIONS: Multiple falls, groin pain since. CLINICAL DATA: This is the patient's initial encounter. Patient reports that signs and symptoms have been present for 1 day and indicates a pain score of 4/10. MEDICAL/SURGICAL HISTORY: . Hypertension. Hypothyroidism. Subdural hematoma . Hysterectomy. A ppendectomy. Craniotomy. Cervical fusion COMPARISON: No prior exams available for comparison. FINDINGS: Examination of the pelvis demonstrates no evidence of fracture or dislocation. Bony mineralization i s normal. There is no widening of the sacroiliac joints. No foreign body is identified. CONCLUSION: Negative examination. Electronically signed by: Sanjay Meneses MD 03/06/2018 3:54 AM EST
--- NOTE | 2018-03-06 03:56 | XR ---
EXAM DATE: 03/06/2018 3:50 AM EST AGE/SEX: 82 years / Female INDICATIONS: Multiple falls, left leg pain since. CLINICAL DATA: This is the patient's initial encounter. Patient reports that signs and symptoms have been present for 1 day and indicates a pain score of 6/10. MEDICAL/SURGICAL HISTORY: . Hypertension. Hypothyroidism. Subdural hematoma . Hysterectomy. A ppendectomy. Craniotomy. Cervical fusion COMPARISON: No prior exams available for comparison. FINDINGS: Bony structures are intact and in normal alignment. Osseous density is normal. Soft tissues are unre markable. No radiopaque foreign bodies seen. CONCLUSION: No evidence of recent bony injury. Electronically signed by: Sanjay Meneses MD 03/06/2018 3:54 AM EST
[2018-03-06 04:03] LABS: Lymphocytes 20 % (9-44); Metamyelocytes 3 % (0-1); Monocytes 20 % (0-8); Tallied Nucleated RBC 4 (0-0)
[2018-03-06 04:06] LABS: Ovalocytes 1+; Platelet Estimate Normal (Normal); Tear Drop Cells 1+
--- NOTE | 2018-03-06 04:23 | ED ---
HPI General Chief Complaint: Fall Stated Complaint: Medical Time Seen by Provider: 03/06/18 02:52 Source: patient Mode of arrival: EMS Limitations: no limitations History of Present Illness HPI Narrative: 82-year-old female was brought to the emergency room by EMS with a c-collar after she sustained a fall because her right leg gave out. Patient says that when she fell she hit her head as well. This is the third time in a week that she has fallen. The previous 2 times she was admitted. Looking back into her medical records it shows that patient had an intracranial bleed. Patient says she was discharged home yesterday. She is complaining of right hip pain. She is awake and answering questions appropriately. Vital signs are stable. Pain is worse upon moving her leg. Related Data Home Medications Medication Instructions Recorded Confirmed divalproex 250 mg PO DAILY 10/28/17 03/07/18 isosorbide mononitrate 30 mg PO DAILY 10/28/17 03/07/18 levothyroxine 137 mcg PO DAILY 10/28/17 03/07/18 losartan 50 mg PO DAILY 10/28/17 03/07/18 metoprolol succinate 50 mg PO DAILY 10/28/17 03/07/18 simvastatin 20 mg PO QPM 10/28/17 03/07/18 triamterene-hydrochlorothiazid 1 cap PO DAILY 10/28/17 03/07/18 allopurinol 100 mg PO DAILY 02/26/18 03/07/18 ruxolitinib [Jakafi] 10 mg PO BID 03/03/18 03/07/18 gabapentin 100 mg PO TID 03/07/18 03/07/18 linezolid [Zyvox] 600 mg PO Q12HR 03/07/18 03/07/18 Allergies Allergy/AdvReac Type Severity Reaction Status Date / Time ciprofloxacin Allergy Severe Itching Verified 03/07/18 17:02 Penicillins Allergy Severe Anaphylaxis Verified 03/07/18 17:02 Sulfa (Sulfonamide AdvReac Severe Nausea Verified 03/07/18 17:02 Antibiotics) Review of Systems ROS: all other systems reviewed are negative [facility] Medical History Medical History Acoustic neuroma (Acute) Acute torn meniscus of knee (Acute) Carpal tunnel syndrome (Acute) HTN (hypertension) (Acute) High cholesterol (Acute) History of hysterectomy (Acute) Hypothyroid (Acute) Myelofibrosis (Acute) Subdural hematoma (Acute) Trigger finger (Acute) Surgical History Surgical History History of neck surgery (Acute) Hx of appendectomy (Acute) Status post exploratory laparotomy (Acute) Status post hysterectomy (Acute) Family History Family History Father Coronary artery disease Diabetes mellitus Mother CVA (cerebral vascular accident) Sister Coronary artery disease Sister Coronary artery disease Sister Coronary artery disease Social History Social History Substance History: No History of Abuse Second Hand Smoke Exposure: No Smoking Status: Former smoker Tobacco Type: Cigarettes Packs Per Day: 3 Cigarettes Per Day: 60.0 Number of Pack-Years (if former smoker): 90 Smoking End Date: 1990 How Often Do You Have a Drink Containing Alcohol: 2 to 4 times a month Hx Recent Travel: No Recent Travel in [facility] within the Last 8 Weeks: No Recent Out of Country Travel within the Last 8 Weeks: No Immunization History Tetanus Immunization: Unsure Exam Narrative Exam Narrative: GENERAL: Awake, alert, elderly, moderate distress, c-collar SKIN: Focused skin assessment warm/dry. HEAD: Atraumatic. Normocephalic. EYES: Pupils equal and round. No scleral icterus. No injection or drainage. ENT: No nasal bleeding or discharge. Mucous membranes pink and moist. NECK: Trachea midline. No JVD. CARDIOVASCULAR: Regular rate and rhythm. No murmur appreciated. RESPIRATORY: No accessory muscle use. Clear to auscultation. Breath sounds equal bilaterally. GASTROINTESTINAL: Abdomen soft, non-tender, nondistended. Hepatic and splenic margins not palpable. MUSCULOSKELETAL: Slight shortening of the right lower extremity, decreased range of motion at the right hip joint mainly due to the pain. No clubbing. No cyanosis. No edema. NEUROLOGICAL: Awake and alert. No obvious cranial nerve deficits. Motor grossly within normal limits. Normal speech. PSYCHIATRIC: Appropriate mood and affect; insight and judgment normal. Course Initial Documented Vital Signs Temperature 98.5 F 03/06/18 02:31 Pulse Rate 73 03/06/18 02:31 Respiratory Rate 16 03/06/18 02:31 Blood Pressure 193/84 H 03/06/18 02:31 Pulse Oximetry 95 03/06/18 02:31 Last Documented Vital Signs Temperature 98.4 F 03/07/18 12:00 Pulse Rate 68 03/07/18 12:00 Respiratory Rate 16 03/07/18 12:00 Blood Pressure 142/65 H 03/07/18 12:00 Pulse Oximetry 97 03/07/18 12:00 Medical Decision Making MDM Narrative Medical decision making narrative: 4:22 AM blood test results are back and within acceptable limits. CT head shows the stable head bleed as per the radiologist. X-ray pelvis has been read negative. Awaiting for the right femur x-ray report. 4:51 AM right femur x-ray is negative. Patient is a high risk for fall at home and will probably require placement. I discussed the case with the hospitalist was accepted the patient. Medical Screen Exam Complete: Yes Emergency Medical Condition: Yes Lab Data Result diagrams: 03/07/18 04:55 03/07/18 04:55 Lab Results 03/06/18 03/06/18 03/06/18 Range/Units 03:06 03:06 03:15 WBC 9.3 (4.0-11.0) th/mm3 RBC 3.06 L (4.00-5.30) mil/mm3 Hgb 9.9 L (11.6-15.3) gm/dL Hct 29.0 L (35.0-46.0) % MCV 95.0 D (80.0-100.0) fL MCH 32.2 (27.0-34.0) pg MCHC 33.9 (32.0-36.0) % RDW 16.8 (11.6-17.2) % Plt Count 184 (150-450) th/mm3 MPV 11.0 (7.0-11.0) fL Prelim Diff (Auto) Slide review pending Neut % (Auto) 60.2 (16.0-70.0) % Lymph % (Auto) 18.0 (9.0-44.0) % [place] % (Auto) 20.8 H (0.0-8.0) % Eos % (Auto) 0.1 (0.0-4.0) % Baso % (Auto) 0.9 (0.0-2.0) % Neut # (Auto) 5.6 (1.8-7.7) th/mm3 Lymph # (Auto) 1.7 (1.0-4.8) th/mm3 [place] # (Auto) 1.9 H (0.0-0.9) th/mm3 Eos # (Auto) 0.0 (0.0-0.4) th/mm3 Baso # (Auto) 0.1 (0.0-0.2) th/mm3 WBC Differential Manual diff final Seg Neuts % (Manual) 52 (16-70) % Band Neuts % (Manual) 4 (0-6) % Lymphocytes % (Manual) 20 (9-44) % Monocytes % (Manual) 20 H (0-8) % Basophils % (Manual) 1 (0-2) % Metamyelocytes % (Man) 3 H (0-1) % Myelocytes % (Man) (0-0) % Abs Neuts (Manual) 5.5 (1.8-7.7) th/mm3 Nucleated RBCs/100 WBC 4 H (0-0) /100 WBC Differential Comment . Platelet Estimate Normal (Normal) Platelet Morphology Enlarged H (Normal) Basophilic Stippling Faint H (None) Tear Drop Cells 1+ H (None) Ovalocytes 1+ H (None) Sodium 143 (136-145) meq/L Potassium 3.3 L (3.5-5.1) meq/L Chloride 109 H (98-107) meq/L Carbon Dioxide 24.7 (21.0-32.0) meq/L Anion Gap 9 (5-15) meq/L BUN 11 (7-18) mg/dL Creatinine 0.92 (0.50-1.00) mg/dL Estimated GFR 59 L (>89) mL/min Random Glucose 112 H (74-106) mg/dL Calcium 8.2 L (8.5-10.1) mg/dL Total Bilirubin 0.4 (0.2-1.0) mg/dL AST 17 (15-37) U/L ALT 20 (10-53) U/L Alkaline Phosphatase 75 (45-117) U/L Troponin I Less than 0.02 L (0.02-0.05) ng/mL Total Protein 7.2 (6.4-8.2) g/dL Albumin 3.4 (3.4-5.0) g/dL Urine Color Yellow (Yellw/Straw) Urine Clarity Hazy H (Clear) Urine pH 6.0 (5.0-8.5) Ur Specific [place] 1.010 (1.002-1.035) Urine Protein Negative (Neg-Trace) mg/dL Urine Glucose (UA) Negative (Negative) mg/dL Urine Ketones Negative (Negative) mg/dL Urine Occult Blood Negative (Negative) Urine Nitrate Negative (Negative) Urine Bilirubin Negative (Negative) Urine Urobilinogen Less than 2 (Less than 2) mg/dL Ur Leukocyte Esterase Small H (Negative) Urine RBC Less than 1 (0-3) /hpf Urine WBC 6 H (0-5) /hpf Ur Squamous Epith Cells 3 (0-5) /hpf Urine Bacteria Rare H (None) /hpf Urine Mucus Few H (Occasional) /lpf Micro UA Comment Culture not ind Ur Microscopic Review Not Reportable Urine Culture Comments Culture not ind 03/07/18 03/07/18 Range/Units 04:55 04:55 WBC 8.3 (4.0-11.0) th/mm3 RBC 2.78 L (4.00-5.30) mil/mm3 Hgb 9.0 L (11.6-15.3) gm/dL Hct 26.7 L (35.0-46.0) % MCV 95.9 (80.0-100.0) fL MCH 32.2 (27.0-34.0) pg MCHC 33.6 (32.0-36.0) % RDW 16.8 (11.6-17.2) % Plt Count 153 (150-450) th/mm3 MPV 11.1 H (7.0-11.0) fL Prelim Diff (Auto) Slide review pending Neut % (Auto) 50.4 (16.0-70.0) % Lymph % (Auto) 23.3 (9.0-44.0) % [place] % (Auto) 25.5 H (0.0-8.0) % Eos % (Auto) 0.2 (0.0-4.0) % Baso % (Auto) 0.6 (0.0-2.0) % Neut # (Auto) 4.2 (1.8-7.7) th/mm3 Lymph # (Auto) 1.9 (1.0-4.8) th/mm3 [place] # (Auto) 2.1 H (0.0-0.9) th/mm3 Eos # (Auto) 0.0 (0.0-0.4) th/mm3 Baso # (Auto) 0.0 (0.0-0.2) th/mm3 WBC Differential Manual diff final Seg Neuts % (Manual) 49 (16-70) % Band Neuts % (Manual) 1 (0-6) % Lymphocytes % (Manual) 32 (9-44) % Monocytes % (Manual) 17 H (0-8) % Basophils % (Manual) (0-2) % Metamyelocytes % (Man) (0-1) % Myelocytes % (Man) 1 H (0-0) % Abs Neuts (Manual) 4.2 (1.8-7.7) th/mm3 Nucleated RBCs/100 WBC 2 H (0-0) /100 WBC Differential Comment . Platelet Estimate Low L (Normal) Platelet Morphology Enlarged H (Normal) Basophilic Stippling (None) Tear Drop Cells 1+ H (None) Ovalocytes 1+ H (None) Sodium 144 (136-145) meq/L Potassium 3.7 (3.5-5.1) meq/L Chloride 109 H (98-107) meq/L Carbon Dioxide 27.1 (21.0-32.0) meq/L Anion Gap 8 (5-15) meq/L BUN 11 (7-18) mg/dL Creatinine 0.75 (0.50-1.00) mg/dL Estimated GFR 74 L (>89) mL/min Random Glucose 101 (74-106) mg/dL Calcium 8.0 L (8.5-10.1) mg/dL Total Bilirubin 0.4 (0.2-1.0) mg/dL AST 13 L (15-37) U/L ALT 17 (10-53) U/L Alkaline Phosphatase 64 (45-117) U/L Troponin I (0.02-0.05) ng/mL Total Protein 6.4 D (6.4-8.2) g/dL Albumin 2.9 L (3.4-5.0) g/dL Urine Color (Yellw/Straw) Urine Clarity (Clear) Urine pH (5.0-8.5) Ur Specific [place] (1.002-1.035) Urine Protein (Neg-Trace) mg/dL Urine Glucose (UA) (Negative) mg/dL Urine Ketones (Negative) mg/dL Urine Occult Blood (Negative) Urine Nitrate (Negative) Urine Bilirubin (Negative) Urine Urobilinogen (Less than 2) mg/dL Ur Leukocyte Esterase (Negative) Urine RBC (0-3) /hpf Urine WBC (0-5) /hpf Ur Squamous Epith Cells (0-5) /hpf Urine Bacteria (None) /hpf Urine Mucus (Occasional) /lpf Micro UA Comment Ur Microscopic Review Urine Culture Comments Imaging Data Radiologist's impression: Lumbar Spine X-Ray 03/06/18 00:00 CONCLUSION: Osteopenia without evidence of insufficiency fracture. Severe facet degenerative changes of the lower lumbar spine. Femur X-Ray 03/06/18 03:01 CONCLUSION: No evidence of recent bony injury. Head CT 03/06/18 03:01 CONCLUSION: 1. Continued subdural hematoma along the falx posteriorly and to the left of midline. It measures up to 7 mm across. Some hemorrhage layering along the tentorium as well. Stable left frontal subdural hygroma without evidence of acute hemorrhage. No significant hemorrhage within the brain parenchyma. . Pelvis X-Ray 03/06/18 03:01 CONCLUSION: Negative examination. Femur X-Ray 03/06/18 03:56 CONCLUSION: Negative examination Lumbar Spine MRI 03/07/18 00:00 CONCLUSION: 1. Mild degenerative disc disease with annular bulging at L4-5. 2. Zoiy-oh-qtlbtekh facet arthropathy at L4-5 and L5-S1. 3. No evidence of disc herniation, spinal stenosis, foraminal encroachment or acute bony abnormality. ECG Data Attestation: I personally reviewed and interpreted this ECG as follows: Interpretation: Twelve-lead EKG was reviewed by me. Normal sinus rhythm, no dermal axis, nonspecific ST-T wave changes, first-degree AV block. Heart rate of 70 bpm. Discharge Plan Discharge Disposition Patient Disposition: 30 Still Patient Discharge Condition Condition: Stable Discharge Order Discharge Orders: Discharge Order (Routine); Ordered 03/07/18 Ordered By: Amadeo Alvarado Discharge Details Discharge Comment: dc to [facility] if Lumbar MRI neg Physicians Team ED Provider: Lester Trevizo Primary Care Provider: UNKNOWN, Attending Provider: Amadeo Alvarado Status ED Status: Left Department Discharge Information Discharge Date/Time: 03/06/18 06:03
[2018-03-06] MEDS ORDERED: Bisacodyl 10 MG Supp RECTAL PRN (04:44)
[2018-03-06] MEDS ORDERED: Acetaminophen 325 MG Tablet PO PRN (04:44)
--- NOTE | 2018-03-06 05:05 | P.HPIM ---
History of Present Illness Primary Care Physician: UNKNOWN History of Present Illness: This is an 82-year-old female with a PMH of HTN, Hyperlipidemia, Hypothyroidism , Acoustic Neuroma s/p Resection 2007, Myelofibrosis and ICH who was brought to the ER by EMS after fall. Pt w/ admit 02/26/18 for fall after syncopal event, found to have ICH, CT Head w/ left SDH, s/p eval by Neurosurgery w/ supportive treatment, started on Keppra, ASA d/c'd. Admitted again on 03/03/18 for recurrent fall, CT Head w/ possible acute on chronic SDH, s/p eval by Dr. Landa w/ recommendation for outpatient follow up, s/p eval by PT and was d/c'd home w/ [facility]. Pt lives alone, brought in by EMS after fall x2 this evening. Pt reports right leg "gave out" and had subsequent fall. Denies LOC or head trauma , states she was able to "slide myself down". CT Head remains largely unchanged. CT C-Spine negative for acute fracture. Left Femur X-ray negative, Pelvis X-ray negative. This is pt's 3rd presentation/admission for fall, she currently lives alone, unsafe d/c home. - Diagnosis (1) Gait instability (2) ICH (intracerebral hemorrhage) (3) Generalized weakness Review of Systems PAST FAMILY HISTORY: Reviewed. No h/o DM or CAD All other systems reviewed negative except as stated in HPI [facility] - History History Provided By: Patient, Tele Rn / EMT - Medical History Medical History: Medical History (Last Reviewed 03/06/18 @ 04:21 by Lester Trevizo MD) Acoustic neuroma Acute torn meniscus of knee Carpal tunnel syndrome HTN (hypertension) High cholesterol History of hysterectomy Hypothyroid Myelofibrosis Subdural hematoma Trigger finger - Surgical History Surgical History: Surgical History (Last Reviewed 03/06/18 @ 04:21 by Lester Trevizo MD) History of neck surgery Hx of appendectomy Status post exploratory laparotomy Status post hysterectomy - Family History Family History: Family History (Last Reviewed 03/06/18 @ 04:21 by Lester Trevizo MD) Other Coronary artery disease Diabetes mellitus - Tobacco History Second Hand Smoke Exposure: No Smoking Status: Former smoker Tobacco Type: Cigarettes - Alcohol History How Often Do You Have a Drink Containing Alcohol: 2 to 3 times a week - Substance Use History Substance History: No History of Abuse - Travel History Recent Travel in the [place] Within the Last 8 Weeks: No Recent Travel Out of the Country Within the Last 8 Weeks: No - Immunization History Tetanus Immunization: Unsure Medications and Allergies Active Medications: Active Medications Acetaminophen (Tylenol) 650 mg PO Q4H PRN PRN Reason: Temp > 100.4 Al Hydroxide/Mg Hydroxide (Milk Of Magnesia Liq) 30 ml PO Q12H PRN PRN Reason: Mild Constipation Allopurinol (Zyloprim) 100 mg PO DAILY ISABEL Bisacodyl (Dulcolax Supp) 10 mg RECTAL DAILY PRN PRN Reason: SEVERE CONSITIPATION Divalproex Sodium (Depakote Er) 250 mg PO DAILY ISABEL Isosorbide Mononitrate (Imdur) 30 mg PO DAILY ISABEL Lactulose (Lactulose Liq) 30 ml PO DAILY PRN PRN Reason: SEVERE CONSITIPATION Levetiracetam (Keppra) 500 mg PO BID [facility] Metoprolol Succinate (Toprol Xl) 50 mg PO DAILY [facility] Non-Formulary Medication (Simvastatin [Simvastatin]) 20 mg PO QPM ISABEL Non-Formulary Medication (Levothyroxine [Levothyroxine]) 137 mcg PO DAILY ISABEL Ondansetron HCl (Zofran Inj) 4 mg IV.PUSH Q6H PRN PRN Reason: NAUSEA OR VOMITING Senna/Docusate Sodium (Maureen-Colace) 1 tab PO BID [facility] Sennosides (Senokot) 17.2 mg PO Q12H PRN PRN Reason: Moderate Constipation Allergies Allergy/AdvReac Type Severity Reaction Status Date / Time ciprofloxacin Allergy Itching Verified 03/06/18 02:34 Penicillins Allergy Anaphylaxis Verified 03/06/18 02:34 Sulfa (Sulfonamide AdvReac Nausea Verified 03/06/18 02:34 Antibiotics) Home Medications Medication Instructions Recorded Confirmed Type divalproex 250 mg PO DAILY 10/28/17 03/06/18 History isosorbide mononitrate 30 mg PO DAILY 10/28/17 03/06/18 History levothyroxine 137 mcg PO DAILY 10/28/17 03/06/18 History losartan 50 mg PO DAILY 10/28/17 03/06/18 History metoprolol succinate 50 mg PO DAILY 10/28/17 03/06/18 History simvastatin 20 mg PO QPM 10/28/17 03/06/18 History triamterene-hydrochlorothiazid 1 cap PO DAILY 10/28/17 03/06/18 History allopurinol 100 mg PO DAILY 02/26/18 03/06/18 History aspirin 81 mg PO DAILY 03/03/18 03/06/18 History ruxolitinib [Jakafi] 10 mg PO BID 03/03/18 03/06/18 History levetiracetam [Keppra] 500 mg PO BID 03/05/18 03/06/18 History Exam Vital signs: Vital Signs 03/06/18 02:31 Temperature 98.5 F Pulse Rate 73 Respiratory Rate 16 Blood Pressure 193/84 H Pulse Oximetry 95 Narrative: PE: GENERAL: Pleasant elderly female in no acute distress. C-collar in place SKIN: Focused skin assessment warm and dry. HEENT: PERRLA, EOMI. No scleral icterus or conjunctival pallor. No lid lag or facial droop. CARDIOVASCULAR: Regular rate and rhythm. No obvious murmurs to auscultation. No chest tenderness to palpation. RESPIRATORY: No obvious rhonchi or wheezing. Clear to auscultation. Breath sounds equal bilaterally. GASTROINTESTINAL: Abdomen soft, non-tender, nondistended. BS normal. MUSCULOSKELETAL: Extremities without clubbing, cyanosis, or edema. No obvious deformities. Right hip tenderness to palpation. NEUROLOGICAL: Awake, alert and oriented x4. No focal neurologic deficits. Moving both upper and lower extremities spontaneously. PSYCHIATRIC: Appropriate mood and affect. Insight and judgment normal. Results - Labs CBC & Chem 7: 03/06/18 03:06 03/06/18 03:06 Labs: Short CBC 03/06/18 Range/Units 03:06 WBC 9.3 (4.0-11.0) th/mm3 Hgb 9.9 L (11.6-15.3) gm/dL Hct 29.0 L (35.0-46.0) % Plt Count 184 (150-450) th/mm3 [facility] 03/06/18 03:06 Sodium 143 Potassium 3.3 L Chloride 109 H Carbon Dioxide 24.7 BUN 11 Creatinine 0.92 Calcium 8.2 L Cardiac Enzymes 03/06/18 Range/Units 03:06 Troponin I Less than 0.02 L (0.02-0.05) ng/mL Liver Function 03/06/18 Range/Units 03:06 Total Bilirubin 0.4 (0.2-1.0) mg/dL AST 17 (15-37) U/L ALT 20 (10-53) U/L Alkaline Phosphatase 75 (45-117) U/L Albumin 3.4 (3.4-5.0) g/dL Urine 03/06/18 Range/Units 03:15 Urine Color Yellow (Yellw/Straw) Urine Clarity Hazy H (Clear) Urine pH 6.0 (5.0-8.5) Ur Specific [place] 1.010 (1.002-1.035) Urine Protein Negative (Neg-Trace) mg/dL Urine Glucose (UA) Negative (Negative) mg/dL - Imaging Impressions Femur X-Ray 03/06/18 03:01 CONCLUSION: No evidence of recent bony injury. Head CT 03/06/18 03:01 CONCLUSION: 1. Continued subdural hematoma along the falx posteriorly and to the left of midline. It measures up to 7 mm across. Some hemorrhage layering along the tentorium as well. Stable left frontal subdural hygroma without evidence of acute hemorrhage. No significant hemorrhage within the brain parenchyma. . Pelvis X-Ray 03/06/18 03:01 CONCLUSION: Negative examination. Caprini VTE Risk Assessment Caprini VTE Risk Assessment: No/Low Risk (score <= 1) VTE Pharmacological Exception Reason: Hemorrhage Caprini Risk Assessment Model: Point Value = 1 Point Value = 2 Point Value = 3 Point Value = 5 Age 41-60 Minor surgery BMI > 25 kg/m2 Swollen legs Varicose veins or History of unexplained or recurrent spontaneous Oral contraceptives or hormone replacement Sepsis (< 1 month) Serious lung disease, including pneumonia (< 1 month) Abnormal pulmonary function Acute myocardial infarction Congestive heart failure (< 1 month) History of inflammatory bowel disease Medical patient at bed rest Age 61-74 Arthroscopic surgery Major open surgery (> 45 min) Laparoscopic surgery (> 45 min) Malignancy Confined to bed (> 72 hours) Immobilizing plaster cast Central venous access Age >= 75 History of VTE Family history of VTE Factor V Leiden Prothrombin [id number] Lupus anticoagulant Anticardiolipin antibodies Elevated serum homocysteine Heparin-induced thrombocytopenia Other congenital or acquired thrombophilia Stroke (< 1 month) Elective arthroplasty Hip, pelvis, or leg fracture Acute spinal cord injury (< 1 month) Prophylaxis Regimen: Total Risk Factor Score Risk Level Prophylaxis Regimen 0-1 Low Early ambulation 2 Moderate Order ONE of the following: *Sequential Compression Device (SCD) *Heparin 5000 units SQ BID 3-4 Higher Order ONE of the following medications: *Heparin 5000 units SQ TID *Enoxaparin/Lovenox 40 mg SQ daily (WT < 150 kg, CrCl > 30 mL/min) *Enoxaparin/Lovenox 30 mg SQ daily (WT < 150 kg, CrCl > 10-29 mL/min) *Enoxaparin/Lovenox 30 mg SQ BID (WT < 150 kg, CrCl > 30 mL/min) AND/OR *Sequential Compression Device (SCD) 5 or more Highest Order ONE of the following medications: *Heparin 5000 units SQ TID (Preferred with Epidurals) *Enoxaparin/Lovenox 40 mg SQ daily (WT < 150 kg, CrCl > 30 mL/min) *Enoxaparin/Lovenox 30 mg SQ daily (WT < 150 kg, CrCl > 10-29 mL/min) *Enoxaparin/Lovenox 30 mg SQ BID (WT < 150 kg, CrCl > 30 mL/min) AND *Sequential Compression Device (SCD) Assessment and Plan - Assessment (1) Gait instability Code(s): R26.81 - Unsteadiness on feet Status: Acute (2) ICH (intracerebral hemorrhage) Code(s): I61.9 - Nontraumatic intracerebral hemorrhage, unspecified Status: Acute (3) Generalized weakness Code(s): R53.1 - Weakness Status: Acute - Plan A/P: 1. Gait Instability: w/ recurrent falls, 3rd presentation/admission in the last 1wk for recurrent fall, pt lives alone and is unsafe d/c home at this time. Will consult PT for eval/tx, consult Case Management for assistance w/ placement to Inpt Rehab. 2. ICH: s/p syncope/fall 02/26/18 w/ ICH, s/p eval by NxSx and cleared for d/c , re-admitted 03/03/18, CT Head w/ possible acute on chronic hemorrhage, s/p eval by NxSx, findings thought to be chronic and cleared again for d/c with outpatient follow up. CT Head on this admission w/ no significant changes. Will monitor closely, Neuro Checks, consult NxSx as needed for re-evaluation. Hold ASA. 3. Weakness: reports lower extremity weakness, likely contributing to recurrent falls. PT for eval/tx as above. CT C-Spine w/ no acute fracture, Pelvis/Left Femur X-ray w/ no acute findings, pending official reading of Right Femur X-ray. 4. DVT Prophylaxis: SCD/Teds, no anticoagulation in light of ICH 5. Social work for d/c planning as needed 6. Case discussed w/ ER physician at length, labs/records/imaging reviewed by me.
--- NOTE | 2018-03-06 05:15 | XR ---
EXAM DATE: 03/06/2018 4:32 AM EST AGE/SEX: 82 years / Female INDICATIONS: Right femur pain post fall. CLINICAL DATA: This is the patient's initial encounter. Patient reports that signs and symptoms have been present for 1 day and indicates a pain score of 5/10. MEDICAL/SURGICAL HISTORY: Hypothyroidism. Hypertension. Hysterectomy. Appendectomy. Cranioto my. COMPARISON: No prior exams available for comparison. FINDINGS: Bony structures are intact and in normal alignment. Osseous density is normal. Soft tissues are unre markable. No radiopaque foreign bodies seen. CONCLUSION: Negative examination Electronically signed by: Sanjay Meneses MD 03/06/2018 5:13 AM EST
[2018-03-06] MEDS: Levothyroxine 112 MCG Tablet PO SCH (06:33)
[2018-03-06] MEDS ORDERED: RUXOLITINIB 10 MG PO SCH (09:00)
[2018-03-06] MEDS: levETIRAcetam 500 MG Tablet PO SCH ×2 (09:03→20:52)
[2018-03-06] MEDS: Senna/Docusate Sodium 8.6/50 MG Tablet PO SCH ×2 (09:04→20:53)
[2018-03-06] MEDS: Divalproex 250 MG ER Tablet PO SCH (09:04)
--- NOTE | 2018-03-06 10:08 | P.PNIM ---
Subjective Interval history: Patient seen and examined this morning at the bedside reports that she felt weak and fell at home and was not using assitive device at the time of the fall imaging reviewed with patient and all negative no sharp shooting pain down leg but endorsed weakness no headache or new vision changes Awaiting PT evaluation at this time.] Patient reports baseline reduced sensation on RIGHT lower extremity which is less than RIGHT side ( not new findings) Physical Exam Vital signs: Last Vital Signs Temp 98.5 F 03/06/18 08:00 Pulse 55 L 03/06/18 08:00 Resp 16 03/06/18 08:00 BP 199/89 H 03/06/18 08:00 Pulse Ox 96 03/06/18 08:00 Intake & Output 03/04/18 03/05/18 03/06/18 03/07/18 06:59 06:59 06:59 06:59 Intake Total 120 / 120 Balance 120 / 120 Narrative: PE: GENERAL: NAD SKIN: Focused skin assessment warm and dry. HEENT: PERRLA, EOMI. No scleral icterus or conjunctival pallor. NO facial droop. CARDIOVASCULAR: Regular rate and rhythm. No obvious murmurs to auscultation. No chest tenderness to palpation. RESPIRATORY: No obvious rhonchi or wheezing. Clear to auscultation. Breath sounds equal bilaterally. GASTROINTESTINAL: Abdomen soft, non-tender, nondistended. BS normal. MUSCULOSKELETAL: Extremities without clubbing, cyanosis, or edema. No obvious deformities. Lower back tenderness near pelvis. NEUROLOGICAL: Awake, alert and oriented x4. No focal neurologic deficits. Moving both upper and lower extremities spontaneously. Sensation > LEFT than RIGHT. Power 5/5 LEFT and 4/5 RIGHT. Results Labs CBC & Chem 7: 03/06/18 03:06 03/06/18 03:06 Imaging Imaging: Impressions Femur X-Ray 03/06/18 03:01 CONCLUSION: No evidence of recent bony injury. Head CT 03/06/18 03:01 CONCLUSION: 1. Continued subdural hematoma along the falx posteriorly and to the left of midline. It measures up to 7 mm across. Some hemorrhage layering along the tentorium as well. Stable left frontal subdural hygroma without evidence of acute hemorrhage. No significant hemorrhage within the brain parenchyma. . Pelvis X-Ray 03/06/18 03:01 CONCLUSION: Negative examination. Femur X-Ray 03/06/18 03:56 CONCLUSION: Negative examination Assessment and Plan (1) Gait instability: Code(s): R26.81 - Unsteadiness on feet Status: Acute (2) ICH (intracerebral hemorrhage): Code(s): I61.9 - Nontraumatic intracerebral hemorrhage, unspecified Status: Acute (3) Generalized weakness: Code(s): R53.1 - Weakness Status: Acute Plan 82-year-old female with a past medical history significant for previous acoustic neuroma, myelofibrosis, hypertension, hyperlipidemia and hypothyroidism presenting to the ED again s/p mechanical fall in residence after recent discharge on 03/05. Patient found on prior hospitalization with SDH evaluated by [facility] and cleared for discharge with outpatient follow up. Patient discharged with [facility] and episode of leg weakness and fall presenting to ED as re-admission. Fall/headache/subdural hematoma Head CT reviewed via EMR. Stable SDH without new brain bleeding. Neurosurgery previously consulted and recommendations appreciated previously. Outpatient follow up on discharge when discharged. Continue Keppra for seizure ppx Physical therapy reconsultation for consideration of rehab services Lumbar X-ray to evaluate for possible disc herniation. Hypokalemia supplement K [id number] x 1 Hypertension/hyperlipidemia -continue Toprol and Cozaar. -continue Pravachol Hypothyroid -continue Synthroid Myelofibrosis -Continue [employer] pharmacologic anticoagulation for subdural hematoma and recent fall CM for dc planning. Plan reviewed with patient at the bedside briefly. Will follow up imaging results. Progress Note: Quality VTE Deep Vein Thrombosis/Pulmonary Embolism Present on Admission: No _ (1) ICH (intracerebral hemorrhage) Qualifiers: Intracerebral hemorrhage etiology: Cerebral hemorrhage location: Encounter type: Laterality: Loss of consciousness presence/duration:
[2018-03-06] MEDS: Allopurinol 100 MG Tablet PO SCH (10:59)
[2018-03-06] MEDS: Isosorbide Mononitrate 30 MG ER 24HR Tablet (Imdur) PO SCH (10:59)
--- NOTE | 2018-03-06 11:01 | XR ---
EXAM DATE: 03/06/2018 10:54 AM EST AGE/SEX: 82 years / Female INDICATIONS: Pain from several falls within one week. CLINICAL DATA: This is the patient's initial encounter. Patient reports that signs and symptoms have been present for 1 week and indicates a pain score of 5/10. MEDICAL/SURGICAL HISTORY: None. None. COMPARISON: No prior exams available for comparison. FINDINGS: Imaging of the lumbar spine demonstrates normal lumbar alignment with diffuse osteopenia. Vertebral b odies maintain normal height. The disc spaces are relatively well preserved. There is minimal anterol isthesis of L4 and L5. There are severe facet degenerative changes seen within the lower lumbar spine from L3 through S1. Adjacent soft tissues are significant for atherosclerosis. CONCLUSION: Osteopenia without evidence of insufficiency fracture. Severe facet degenerative changes of the lower lumbar spine. Electronically signed by: Althea Abreu MD 03/06/2018 10:59 AM EST
[2018-03-06] MEDS: JAKAFI 10 MG PO SCH ×2 (13:47→20:53)
--- NOTE | 2018-03-06 15:53 | ECG ---
Date Performed: 03/06/2018 Time Performed: 03:50:37 PTAGE: 82 years EKG: Sinus rhythm WITH FIRST DEGREE AV BLOCK ABNORMAL ECG PREVIOUS TRACING : 03/04/2018 16.54 Compared to previous tracing, QRS voltage has improved in p recordial leads and T- wave chnage shave also improved DOCTOR: Matty Suarez Interpretating Date/Time 03/06/2018 15:51:42
--- NOTE | 2018-03-07 05:35 | P.PN ---
Subjective Interval history: F/u fall. Patient complains of lower back pain with radiculopathy to right thigh and neuropathy to distal right thigh and leg. Lumbar x-ray with no acute fracture. Discussed with radiology will check MRI with contrast to evaluate for herniated disc. Patient is medically stable for discharge to [place] if MRI negative. Urine culture with group B beta strep will start Zyvox as she is allergic to Cipro, penicillin and sulfa. Physical Exam Vital signs: Vital Signs 03/06/18 06:14 03/06/18 06:39 03/06/18 08:00 Temperature 98.0 F 98.5 F Pulse Rate 61 55 L Respiratory Rate 18 16 Blood Pressure 193/77 H 159/72 H 199/89 H Pulse Oximetry 94 L 96 03/06/18 12:00 03/06/18 16:00 03/06/18 20:00 Temperature 97.8 F 98.7 F 99.0 F Pulse Rate 67 59 L 67 Respiratory Rate 18 16 20 Blood Pressure 152/67 H 133/61 122/88 Pulse Oximetry 95 94 L 66 L 03/06/18 21:52 03/06/18 23:15 03/07/18 03:30 Temperature 97.8 F 98.5 F Pulse Rate 73 62 66 Respiratory Rate 18 18 18 Blood Pressure 123/65 144/65 H 129/61 Pulse Oximetry 100 96 96 Intake & Output 03/06/18 03/06/18 03/07/18 06:59 18:59 06:59 Intake Total 120 / 120 Output Total 2 / 2 Balance 120 / 120 -2 / -2 Intake: Oral 120 / 120 Output: Urine 2 / 2 Other: # Voids 2 Date of Last Bowel Movement 03/05/18 03/07/18 # Bowel Movements 1 Narrative: GENERAL: NAD SKIN: Focused skin assessment warm and dry. CARDIOVASCULAR: Regular rate and rhythm. No obvious murmurs to auscultation. No chest tenderness to palpation. RESPIRATORY: No obvious rhonchi or wheezing. Clear to auscultation. Breath sounds equal bilaterally. GASTROINTESTINAL: Abdomen soft, non-tender, nondistended. BS normal. MUSCULOSKELETAL: Extremities without clubbing, cyanosis, or edema. No obvious deformities. Lower back tenderness near pelvis. Bruised right lateral thigh. Neurovascularly intact NEUROLOGICAL: Awake, alert and oriented x4. No focal neurologic deficits. Moving both upper and lower extremities spontaneously. Sensation > LEFT than RIGHT. Power 5/5 LEFT and 4/5 RIGHT. Results - Labs CBC & Chem 7: 03/07/18 04:55 03/07/18 04:55 - Imaging ITS Impressions Lumbar Spine X-Ray 03/06/18 00:00 CONCLUSION: Osteopenia without evidence of insufficiency fracture. Severe facet degenerative changes of the lower lumbar spine. Head CT 03/06/18 03:01 CONCLUSION: 1. Continued subdural hematoma along the falx posteriorly and to the left of midline. It measures up to 7 mm across. Some hemorrhage layering along the tentorium as well. Stable left frontal subdural hygroma without evidence of acute hemorrhage. No significant hemorrhage within the brain parenchyma. . Pelvis X-Ray 03/06/18 03:01 CONCLUSION: Negative examination. Femur X-Ray 03/06/18 03:56 CONCLUSION: Negative examination - Procedures none Assessment and Plan - Assessment (1) Gait instability Code(s): R26.81 - Unsteadiness on feet Status: Acute (2) ICH (intracerebral hemorrhage) Code(s): I61.9 - Nontraumatic intracerebral hemorrhage, unspecified Status: Acute (3) Generalized weakness Code(s): R53.1 - Weakness Status: Acute - Plan 82-year-old female with a past medical history significant for previous acoustic neuroma, myelofibrosis, hypertension, hyperlipidemia and hypothyroidism presenting to the ED again s/p mechanical fall in residence after recent discharge on 03/05. Patient found on prior hospitalization with SDH evaluated by Neuro[facility] and cleared for discharge with outpatient follow up. Patient discharged with [facility] and episode of leg weakness and fall presenting to ED as re-admission. Fall/headache/subdural hematoma Head CT reviewed via EMR. Stable SDH without new brain bleeding. Neurosurgery previously consulted and recommendations appreciated previously. Outpatient follow up on discharge when discharged. Continue Keppra for a total of 7 days for seizure ppx, last dose tomorrow Physical therapy reconsultation for consideration of rehab services Lumbar X-ray w/o acute findings. Because of recent fall and persistent back pain with neuropathy and radiculopathy to right lower extremity will obtain MRI to evaluate for herniated disks prior to transfer to [place] Hypokalemia Resolved status post replacement Hypertension/hyperlipidemia -continue Toprol and Cozaar. -continue Pravachol Hypothyroid -continue Synthroid Myelofibrosis -Continue [employer] pharmacologic anticoagulation for subdural hematoma and recent fall Group B beta strep UTI. Allergic to Cipro, penicillin and sulfa. Empiric Zyvox pending sensitivity CM for dc planning. Giovanni consulted Discharge Planning: Discharge patient to [place] Condition on discharge: Improved Regular Diet as tolerated Ad Tiffany activity no driving Rx written: Zyvox Follow-up with primary care physician
[2018-03-07 06:24] LABS: Baso % (Auto) 0.6 % (0.0-2.0); Eos % (Auto) 0.2 % (0.0-4.0); Hematocrit 26.7 % (35.0-46.0); Lymph # (Auto) 1.9 th/mm3 (1.0-4.8); Lymph % (Auto) 23.3 % (9.0-44.0); Mean Corpuscular HGB Conc 33.6 % (32.0-36.0); Mean Corpuscular Hemoglobin 32.2 pg (27.0-34.0); Mean Corpuscular Volume 95.9 fL (80.0-100.0); Mean Platelet Volume 11.1 fL (7.0-11.0); Mono # (Auto) 2.1 th/mm3 (0.0-0.9); Mono % (Auto) 25.5 % (0.0-8.0); Neut # (Auto) 4.2 th/mm3 (1.8-7.7); Neut % (Auto) 50.4 % (16.0-70.0); Platelet Count 153 th/mm3 (150-450); Red Blood Count 2.78 mil/mm3 (4.00-5.30); Red Cell Distribution Width 16.8 % (11.6-17.2); White Blood Count 8.3 th/mm3 (4.0-11.0)
[2018-03-07] MEDS: Levothyroxine 112 MCG Tablet PO SCH (06:36)
[2018-03-07 06:39] LABS: Albumin 2.9 g/dL (3.4-5.0); Anion Gap 8 meq/L (5-15); Aspartate Aminotransferase 13 U/L (15-37); Blood Urea Nitrogen 11 mg/dL (7-18); Carbon Dioxide 27.1 meq/L (21.0-32.0); Chloride 109 meq/L (98-107); Glomerular Filtration Rate 74 mL/min (>89); Glucose,Random 101 mg/dL (74-106); Potassium 3.7 meq/L (3.5-5.1); Sodium 144 meq/L (136-145)
[2018-03-07 06:42] LABS: Alanine Aminotransferase 17 U/L (10-53); Alkaline Phosphatase 64 U/L (45-117); Total Protein 6.4 g/dL (6.4-8.2)
[2018-03-07 08:10] VITALS: RESP 16
[2018-03-07 09:00] LABS: Lymphocytes 32 % (9-44); Monocytes 17 % (0-8); Myelocytes 1 % (0-0); Ovalocytes 1+; Tallied Nucleated RBC 2 (0-0); Tear Drop Cells 1+
[2018-03-07] MEDS: Divalproex 250 MG ER Tablet PO SCH (09:52)
[2018-03-07] MEDS: Allopurinol 100 MG Tablet PO SCH (09:52)
[2018-03-07] MEDS: Isosorbide Mononitrate 30 MG ER 24HR Tablet (Imdur) PO SCH (09:52)
[2018-03-07] MEDS: levETIRAcetam 500 MG Tablet PO SCH (09:53)
[2018-03-07] MEDS: JAKAFI 10 MG PO SCH (09:53)
[2018-03-07 12:09] VITALS: BP 142/65; PULSE 68; TEMP 98.4; O2SAT 97
[2018-03-07] MEDS: Senna/Docusate Sodium 8.6/50 MG Tablet PO SCH (12:10)
[2018-03-07] MEDS ORDERED: Linezolid 600 MG Tablet PO SCH (13:00)
[2018-03-07] MEDS ORDERED: Gabapentin 100 MG Capsule PO SCH (13:00)
--- NOTE | 2018-03-07 16:09 | MR ---
EXAM DATE: 03/07/2018 3:59 PM EST AGE/SEX: 82 years / Female INDICATIONS: . Low back and right side pain. CLINICAL DATA: This is the patient's initial encounter. Patient reports that signs and symptoms have been present for 3 days and indicates a pain score of 6/10. MEDICAL/SURGICAL HISTORY: Hypertension. Myelofibrosis. Appendectomy. Hysterectomy. Acoustic n euroma. Carpal tunnel. COMPARISON: [facility], MR CERVICAL SPINE W AND W/O CONTRAST, 01/21/2015. . TECHNIQUE: Multiplanar, multisequence MRI of the lumbar spine was performed without contrast. Patie nt was scanned in a sitting position; neutral, flexion, and extension scans were performed in the sa gittal plane. FINDINGS: Vertebra: Homogeneous signal. Normal alignment. Mild to moderate facet arthropathy is seen in the l ower lumbar spine at L4-5 and L5-S1.. Conus: Normal level and configuration. T12-L1: The thecal sac has a normal diameter. No evidence of disc bulge or protrusion. The neural foramina are patent bilaterally. L1-L2: The thecal sac has a normal diameter. No evidence of disc bulge or protrusion. The neural foramina are patent bilaterally. L2-L3: The thecal sac has a normal diameter. No evidence of disc bulge or protrusion. The neural foramina are patent bilaterally. L3-L4: The thecal sac has a normal diameter. No evidence of disc bulge or protrusion. The neural foramina are patent bilaterally. L4-L5: Mild degenerative disc disease with annular bulging is noted. There is no evidence of disc h erniation. L5-S1: The thecal sac has a normal diameter. No evidence of disc bulge or protrusion. The neural foramina are patent bilaterally. CONCLUSION: 1. Mild degenerative disc disease with annular bulging at L4-5. 2. [id number] facet arthropathy at L4-5 and L5-S1. 3. No evidence of disc herniation, spinal stenosis, foraminal encroachment or acute bony abnormality . Electronically signed by: Terrell Gómez MD 03/07/2018 4:08 PM EST
== END 2018-03-07 16:46 ==
LOC: NEPC 02:24 → INTOOBSV 04:44 → NEDA 04:53 → NEPFCDU 05:50
PROVIDERS: ADMIT Internal Medicine; ATTEND Internal Medicine
DX: Z79.899 Other long term (current) drug therapy; Z87.891 Personal history of nicotine dependence; G56.00 Carpal tunnel syndrome, unspecified upper limb; D33.3 Benign neoplasm of cranial nerves; E03.9 Hypothyroidism, unspecified; D75.81 Myelofibrosis; I44.0 Atrioventricular block, first degree; R29.6 Repeated falls; E78.5 Hyperlipidemia, unspecified; R26.81 Unsteadiness on feet; W19.XXXA Unspecified fall, initial encounter; I10 Essential (primary) hypertension; W18.30XA Fall on same level, unspecified, initial encounter; S06.5X9A Traumatic subdural hemorrhage with loss of consciousness of unspecified duration, initial encounter; Z79.82 Long term (current) use of aspirin